=== PATIENT | male | born 1940 | race Caucasian/White ===

== ENCOUNTER 2021-12-18 09:38 | Emergency (ER) | payer MEDICARE, BC, SELFPAY ==
--- NOTE | ~2021-12-18 | XR_ITS ---
EXAMINATION: XR hand RT min 3V INDICATION: Right hand pain TECHNIQUE: Three views of the right hand are obtained. COMPARISON: None available FINDINGS: No fracture is identified. There is advanced osteoarthritis at the triscaphe joint, multipl e interphalangeal joints and the third metacarpophalangeal joint. There is moderate osteoarthritis at the first carpometacarpal joint as well as in the second, fourth, and fifth metacarpophalangeal join ts. The soft tissues are unremarkable. IMPRESSION: 1. 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 Reviewed, dictated and finalized at location A.
--- NOTE | 2021-12-18 09:44 | ED.UPPEXIN ---
HPI - Extremity Injury (Upper) General Chief Complaint: Extremity Injury, Upper Stated Complaint: Right hand injury Time Seen by Provider: 12/18/21 10:23 Source: patient and RN notes reviewed Mode of arrival: ambulatory Limitations: no limitations History of Present Illness HPI narrative: 81-year-old male presents with concern for right hand injury. He also reports abrasions on his forehead and nose. Reports yesterday he fell in his front yard, hitting his face and injuring his hand. He reports he is cleaned his wounds and applied antibiotic ointment. He reports a small amount of white drainage from the wounds. He reports right hand pain, most painful at the PIP joint of the third digit. MD complaint: injury to: right and hand Related Data Home Medications Medication Instructions Recorded Confirmed atorvastatin 40 mg tablet 40 tablet PO DAILY 12/18/21 12/18/21 dutasteride 0.5 mg capsule 0.5 cap PO DAILY 12/18/21 12/18/21 tamsulosin 0.4 mg capsule 0.4 cap PO DAILY 12/18/21 12/18/21 Allergies Allergy/AdvReac Type Severity Reaction Status Date / Time No Known Allergies Allergy Verified 12/18/21 10:40 Review of Systems Review of Systems: CONSTITUTIONAL: Denies malaise, chills, sweats, or fever. SKIN: Reports abrasion to the right forehead and nose. MUSCULOSKELETAL: Reports right hand pain, swelling NEUROLOGIC: Denies numbness, weakness All systems reviewed & are unremarkable except as noted in HPI and below PMFSH Comments At time of signature, agree with nursing past medical, surgical, social and family history. There is no relevant family history pertinent to the presenting complaint Exam Narrative: GENERAL: Well-appearing, well-nourished, and in no acute distress. HEAD: Normocephalic, atraumatic. EYES: PERRLA, conjunctivae clear NECK: Supple. CHEST: Speaks in full sentences. No respiratory distress. HEART: Regular rate and rhythm. Normal and equal peripheral pulses. EXTREMITIES: Right hand and digits of hand have normal sensation. 5/5 strength with digit 1, 2, 4, 5 flexion, extension; digit 3 3/5 strength. Range of motion limited. No clubbing, cyanosis. Mild dorsal edema and tenderness noted, particularly above digit 3. Skin intact. Normal digital cascade with flexion of fingers, median, ulnar and radial nerve intact. Normal sensation of each side of finger. Can perform 'okay' sign. No scissoring. Normal thumb opposition. Good capillary refill and radial pulse. Distal capillary refill less than 3 seconds. SKIN: Warm, dry. Approximately 4 cm x 3 cm abrasion noted to the right forehead, 1 cm x 2 cm abrasion noted to the bridge of the nose, small amount of yellow drainage noted NEURO: Alert and oriented x3. PSYCH: Normal mood and affect Course Course Emergency Course: Patient is aware of diagnosis, understands and agrees to treatment plan. Anticipatory guidance given. Patient agrees to follow-up as directed and is aware of reasons to seek care at the emergency department. Portions of this record may have been created with voice recognition software Level of Care: Express Care Visit Vital Signs Vital signs: Reviewed. MDM - Extremity Injury (Upper) MDM Narrative Medical decision making narrative: Patients injury and pain is consistent with musculoskeletal etiology. No signs of neurological or vascular compromise on exam. Compartments and tissues are soft without signs of compartment syndrome. Pain is felt appropriate for further evaluation on an outpatient basis. Imaging Data My impression: Images reviewed, interpreted by radiologist, agree, see report. Radiologist's impression: EXAMINATION: XR hand RT min 3V INDICATION: Right hand pain TECHNIQUE: Three views of the right hand are obtained. COMPARISON: None available FINDINGS: No fracture is identified. 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 There is mode
[2021-12-18 09:46] VITALS: BP 156/74; PULSE 64; RESP 20; TEMP 36.6; O2SAT 100
== END 2021-12-18 11:05 | disposition home or self-care (01) ==
PROVIDERS: Emergency Provider Nurse Practitioner; PCP Family Medicine Sports Medicine
DX: S63.91XA Sprain of unspecified part of right wrist and hand, initial encounter (principal); W19.XXXA Unspecified fall, initial encounter; S00.81XA Abrasion of other part of head, initial encounter; S00.31XA Abrasion of nose, initial encounter; E11.9 Type 2 diabetes mellitus without complications
CPT/HCPCS: 73130; 99213; G0463

== ENCOUNTER 2022-11-22 16:11 | Inpatient (IN) | payer MEDICARE, BC, SELFPAY ==
[2022-11-22] VITALS (12 sets, daily range): BP systolic 129–153; BP diastolic 66–89; PULSE 63–76; RESP 10–18; TEMP 37.4; O2SAT 95–100; BMI 28.8
--- NOTE | ~2022-11-22 | XR_ITS ---
EXAM: XR hip RT 2V w AP pelvis DATE: 11/22/2022 17:45 HISTORY: fall . COMPARISON: None available. FINDINGS: Slightly decreased mineralization. Degenerative changes in the spine and right SI joint. C omminuted fracture of the proximal right femur involving the intertrochanteric region and lesser troc hanter, which is distracted. Moderate medial angulation. IMPRESSION: Medially angulated intertrochanteric right femoral fracture. Reviewed, dictated and finalized at location K.
--- NOTE | ~2022-11-22 | XR_ITS ---
EXAMINATION: XR surgery orthopedic DATE: 11/24/2022 13:25 INDICATION: Intertrochanteric fracture of proximal right femur. TECHNIQUE: 6 intraoperative fluoroscopic views of right femur were obtained. I was not present. Fluor oscopy exposure time was 73 seconds. COMPARISON: Right hip radiographs 11/22/2022 FINDINGS: There is a comminuted intertrochanteric fracture of proximal right femur. The main distal f racture fragment demonstrates 2 cortical widths medial displacement and 9 degrees medial angulation. Internal fixation is seen with an antegrade intramedullary nail and femoral head/neck screw and dista l interlocking screw. There is mild right hip osteoarthrosis. IMPRESSION: 1. Comminuted intertrochanteric fracture of proximal right femur with improved alignment status post open reduction internal fixation. Reviewed, dictated and finalized at location E.
--- NOTE | ~2022-11-22 | XR_ITS ---
EXAMINATION: XR chest 1V portable Exam Date/Time: 11/22/2022 17:35 CDT HISTORY: fall Comparison: None. RESULT: Lines, tubes, and devices: None. Lungs and pleura: Senescent changes. No focal consolidation or pneumothorax. Cardiomediastinal silhouette: Aortic ectasia. Other: No acute osseous or upper abdominal finding. IMPRESSION: No acute cardiopulmonary process. Reviewed, dictated and finalized at location K.
--- NOTE | ~2022-11-22 | US_ITS ---
EXAMINATION: US venous doppler LE RT DATE: 11/28/2022 13:06 INDICATION: Right calf swelling and pain. TECHNIQUE: Grayscale ultrasound images without and with compression and Doppler ultrasound images of the right lower extremity veins were obtained. COMPARISON: None. FINDINGS: The visualized portions of right common femoral vein, profunda (deep) femoral vein, femoral vein, pop liteal vein, peroneal veins, posterior tibial veins, and greater saphenous vein outflow are patent. IMPRESSION: 1. No deep venous thrombosis. Reviewed, dictated and finalized at location A.
--- NOTE | 2022-11-22 16:53 | ECG_ITS ---
Measurements Intervals [place] Rate: 64 P: 34 HI: 185 QRS: 60 QRSD: 158 T: -15 QT: 445 QTc: 461 Interpretive Statements SINUS RHYTHM RIGHT BUNDLE BRANCH BLOCK BASELINE ARTIFACT- II, III, AVF, V4-V6 ABNORMAL ECG NO PREVIOUS ECG AVAILABLE FOR COMPARISON Electronically Signed On 11-22-2022 17:35:27 CDT by Jann Scott D.O.
[2022-11-22] MEDS: ONDANSETRON INJ 4 MG/2 ML VIAL IV PUSH (17:12)
[2022-11-22] MEDS: MORPHINE SULFATE (*CRX) 4 MG/ML INJ IV PUSH (17:12)
[2022-11-22 17:14] LABS: Basophils Absolute Auto 0.1 K/mm3 (0.0-0.1); Basophils Percent Auto 0.4 % (0.2-1.2); Eosinophils Absolute Auto 0.1 K/mm3 (0-0.3); Eosinophils Percent Auto 0.8 % (0-4.4); Hematocrit 43.9 % (42.0-52.0); Hemoglobin 14.7 g/dL (14.0-18.0); Immature Granulocyte Absolute 0.04 K/mm3 (0.00-0.031); Immature Granulocyte Percent A 0.3 % (0-0.5); Lymphocytes Absolute Auto 1.77 K/mm3 (0.9-3.2); Lymphocytes Percent Auto 14.4 % (18.3-44.2); Mean Corpuscular HGB Conc 33.5 g/dl (32-36); Mean Corpuscular Hemoglobin 31.5 pg (26-34); Mean Platelet Volume 9.6 fl (7.4-10.4); Monocytes Percent Auto 8.2 % (2.6-8.5); Neutrophils Absolute Auto 9.4 K/mm3 (1.3-6.7); Neutrophils Percent Auto 75.9 % (45.5-73.1); Platelet Count Result 245 k/mm3 (150-375); Red Blood Count 4.67 M/mm3 (4.6-6.20); Red Cell Distribution Width 12.6 % (11.5-14.5); White Blood Count 12.3 K/mm3 (4.5-10.0)
[2022-11-22 17:26] LABS: Prothrombin Time 13.9 Seconds (11.1-14.7)
[2022-11-22 17:32] LABS: Alanine Aminotransferase 22 U/L (6-50); Albumin Level 4.3 g/dL (3.5-5.1); Alkaline Phosphatase 70 U/L (38-126); Anion Gap 12 mmol/L (8-16); Aspartate Amino Transferase 23 U/L (17-59); Bilirubin,Total 0.9 mg/dL (0.2-1.3); Blood Urea Nitrogen 20 mg/dL (9-20); Calcium 8.9 mg/dL (8.4-10.2); Carbon Dioxide 22 mmol/L (22-30); Chloride 104 mmol/L (98-107); Estimated CRCL calculation 48 ml/min; Estimated Glomerular Filt Rate 58; Glucose 186 mg/dL (65-110); Potassium 3.8 mmol/L (3.4-5.0); Sodium 138 mmol/L (137-145)
--- NOTE | 2022-11-22 18:35 | ED.FALL ---
HPI - Fall General Chief Complaint: Fall Stated Complaint: 1620 Source: patient Mode of arrival: EMS Limitations: no limitations History of Present Illness HPI Narrative: 82-year-old with history of hyperlipidemia, BPH here with complaints of right hip pain. Patient states that he was trying to pull the nail out of his deck lost balance and fell on his right hip. He denies head and neck injuries. No history of loss of consciousness. MD complaint: fall Fall from: standing Fall witnessed: yes, by family Place fall occurred: home Loss of consciousness: none Symptoms prior to fall: none Context: other (Lost balance) Location of injury: other (Right hip) Quality: aching Related Data Home Medications Medication Instructions Recorded Confirmed atorvastatin 40 mg tablet 40 tablet PO DAILY 12/18/21 12/18/21 dutasteride 0.5 mg capsule 0.5 cap PO DAILY 12/18/21 12/18/21 tamsulosin 0.4 mg capsule 0.4 cap PO DAILY 12/18/21 12/18/21 Allergies Allergy/AdvReac Type Severity Reaction Status Date / Time No Known Allergies Allergy Verified 12/18/21 10:40 Review of Systems Review of Systems: All systems reviewed & are unremarkable except as noted in HPI and below Constitutional: Constitutional: Reports no additional constitutional complaints Eyes: Eyes: Reports no additional eye complaints ENT: Reports system reviewed and no additional complaints, except as documented Cardiovascular: Cardiovascular: Reports no additional cardiovascular complaints Respiratory: Respiratory: Reports no additional respiratory complaints Gastrointestinal: Gastrointestinal: Reports no additional gastrointestinal complaints Musculoskeletal: Musculoskeletal: Reports as per HPI Integumentary/Breasts: Skin/Breast: Reports system reviewed and no additional complaints, except as docu Neurologic: Reports system reviewed and no additional complaints, except as documented Exam Narrative: GENERAL: Well-appearing, well-nourished, and in no acute distress. HEAD: Normocephalic, atraumatic. EYES: PERRLA and EOMI. NECK: Supple. CHEST: Clear to auscultation. No respiratory distress. HEART: Regular rate and rhythm. No murmur heard. Normal peripheral pulses. ABDOMEN: Soft, nontender, nondistended, normal active bowel sounds. EXTREMITIES: Normal range of motion. No edema. Mild tenderness in the right hip area on gentle palpation. SKIN: Warm, dry, no rash. NEURO: No focal deficits. Alert and oriented x3. PSYCH: Normal mood and affect. Course Course Emergency Course: Patient seems to be comfortable on the bed with IV morphine on board informed him and his son about his lab work, x-ray findings agreeable for admission. I discussed with Dr. Quick and the hospitalist. Vital Signs Vital signs: Vital Signs Temperature 37.4 C 11/22/22 16:18 Pulse Rate 66 11/22/22 16:18 Respiratory Rate 17 11/22/22 16:18 Blood Pressure 153/89 H 11/22/22 16:18 Pulse Oximetry 100 11/22/22 16:18 Oxygen Delivery Room Air 11/22/22 16:18 Temperature 37.4 C 11/22/22 16:18 Pulse Rate 66 11/22/22 18:30 Respiratory Rate 12 11/22/22 18:30 Blood Pressure 133/75 11/22/22 18:30 Pulse Oximetry 100 11/22/22 18:30 Oxygen Delivery Room Air 11/22/22 16:18 MDM - Fall MDM Narrative Medical decision making narrative: 82-year-old with a history of fall now having significant right hip pain tender on gentle movement appears to be fractured we will do x-rays control his pain with morphine. Differential Diagnosis Differential diagnosis: Likely other (Hip contusion hip fracture) Lab Data 11/22/22 16:30 11/22/22 16:30 Labs: Lab Results 11/22/22 Range/Units 16:30 WBC 12.3 H (4.5-10.0) K/mm3 RBC 4.67 (4.6-6.20) M/mm3 Hgb 14.7 (14.0-18.0) g/dL Hct 43.9 (42.0-52.0) % MCV 94.0 (80-100) fl MCH 31.5 (26-34) pg MCHC 33.5 (32-36) g/dl RDW 12.6 (11.5-14.5) % Plt Count 245 (150-37
[2022-11-22] MEDS: HYDROmorphone HCL INJ (*CRX) 1 MG/ML SYR 0.5 MG IV PUSH (18:41)
--- NOTE | 2022-11-22 20:38 | PM.IMHP ---
H&P: HPI History of Present Illness Date/Time: 11/22/22 20:30 Chief Complaint: Right hip pain after fall. Narrative: This is a very pleasant 82-year-old male with hypertension, hyperlipidemia, type 2 diabetes mellitus, and benign prostatic hyperplasia presented to the emergency department via EMS from home for evaluation of right hip pain after fall. This afternoon he was outside making repairs on his dock. He had some issues removing a soraida nail from a board and when the nail finally released the force sent him backwards and caused him to fall hard onto his right side onto the wooden dock. He had immediate pain in that right hip and was unable to get himself up but he was able to crawl onto the grass and a neighbor saw him within about 20 minutes time and EMS was summoned. He denies head trauma and loss of consciousness in the fall and he has no complaints of pain aside from a pretty severe aching pain in the right hip. Radiographs in the ED showed immediately angulated inter trochanteric right femoral fracture and he is being admitted in this setting for pain control and surgical correction. Review of Systems Review of Systems: Twelve systems were reviewed. No fever, chills, or sweats. No recent cold or flu symptoms. He has no history of cardiac disease. Denies exertional chest pain and shortness of breath. No syncope or near syncope. He denies orthopnea, paroxysmal nocturnal dyspnea, and lower extremity edema. No nausea or vomiting. No history of venous thromboembolism. He believes his diabetes is well controlled. Except as documented, all other systems were reviewed and are negative. 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 Code status: Full code. Smoking status: Never smoker Alcohol intake: current Alcohol use details: 1-2 a day. Substance use: never Additional living arrangements comments: The patient lives in his own home in [place]. Additional occupation/education comments: Retired from [employer]. Meds Home Medications and Allergies Home Medications Medication Instructions Recorded Confirmed Type atorvastatin 40 mg tablet 40 tablet PO DAILY 12/18/21 12/18/21 History dutasteride 0.5 mg capsule 0.5 mg PO DAILY 12/18/21 12/18/21 History mupirocin 2 % topical ointment 1 applic topical BID 7 days #22 12/18/21 Rx grams tamsulosin 0.4 mg capsule 0.4 cap PO DAILY 12/18/21 12/18/21 History empagliflozin 25 mg tablet 25 mg 11/22/22 History (Jardiance) lisinopril 10 mg tablet 10 mg PO 11/22/22 History Allergies Allergy/AdvReac Type Severity Reaction Status Date / Time No Known Allergies Allergy Verified 12/18/21 10:40 Vital Signs Vital Signs - 24 hr 11/22/22 16:18 11/22/22 18:30 11/22/22 18:43 Temperature 99.3 F Pulse Rate 66 66 66 Respiratory Rate 17 12 18 Blood Pressure 153/89 H 133/75 Pulse Oximetry 100 100 99 Oxygen Delivery Room Air 11/22/22 18:51 11/22/22 19:09 11/22/22 19:15 Temperature Pulse Rate 65 64 64 Respiratory Rate 13 11 L 10 L Blood Pressure Pulse Oximetry 99 97 96 Oxygen Delivery 11/22/22 19:16 11/22/22 19:30 11/22/22 19:45 Temperature Pulse Rate 63 69 65 Respiratory Rate 11 L 11 L 13 Blood Pressure 141/66 H Pulse Oximetry 97 95 98 Oxygen Delivery 11/22/22 19:46 11/22/22 20:02 Temper
[2022-11-22] MEDS: TAMSULOSIN HCL 0.4 MG CAPSULE PO (21:04)
[2022-11-22] MEDS: lisinopriL 10 MG TABLET PO (21:04)
[2022-11-22 21:07] LABS: Glucose Point of Care 142 mg/dl (65-105)
[2022-11-22] MEDS: DUTASTERIDE 0.5 MG CAPSULE PO (22:00)
[2022-11-22] MEDS: ATORVASTATIN 40 MG TABLET PO (22:00)
[2022-11-22] MEDS: EMPAGLIFLOZIN 25 MG TABLET PO (22:00)
[2022-11-22] MEDS: SODIUM CHLORIDE 0.9% IV 1,000 ML 125 ML IV CONT (22:00)
[2022-11-23] MEDS: HYDROcodone/acetaminophen (*CRX) 5-325 MG TABLET 1 TAB PO ×3 (05:00→20:24)
[2022-11-23 06:19] LABS: Basophils Percent Auto 0.3 % (0.2-1.2); Eosinophils Percent Auto 0.3 % (0-4.4); Hematocrit 39.6 % (42.0-52.0); Immature Granulocyte Absolute 0.03 K/mm3 (0.00-0.031); Immature Granulocyte Percent A 0.3 % (0-0.5); Lymphocytes Absolute Auto 1.62 K/mm3 (0.9-3.2); Lymphocytes Percent Auto 17.3 % (18.3-44.2); Mean Corpuscular HGB Conc 32.8 g/dl (32-36); Mean Corpuscular Hemoglobin 31.6 pg (26-34); Mean Corpuscular Volume 96.4 fl (80-100); Mean Platelet Volume 9.3 fl (7.4-10.4); Monocytes Absolute Auto 1.3 K/mm3 (0.1-0.6); Monocytes Percent Auto 13.8 % (2.6-8.5); Neutrophils Absolute Auto 6.4 K/mm3 (1.3-6.7); Platelet Count Result 212 k/mm3 (150-375); Red Blood Count 4.11 M/mm3 (4.6-6.20); Red Cell Distribution Width 12.9 % (11.5-14.5); White Blood Count 9.4 K/mm3 (4.5-10.0)
--- NOTE | 2022-11-23 06:31 | ADMGEN ---
This patient, Tomy Jett, was admitted to Medical Room 347-01. Patient/family oriented to hospital policies and general routines including ID bracelet, bed and alarms, visiting hours, pain management, procedures, bathroom and other care routines, personal items, smoking policy, room service/diet, and visiting hours. Information on how to activate the Rapid Response Team has been discussed. Patient/Family are encouraged to report perceived risks to care and to ask questions if they do not understand what they are told or what they should do.
--- NOTE | 2022-11-23 06:47 | PM.CNOR ---
Assessment and Plan Assessment and plan (1) Closed intertrochanteric fracture of right femur: Qualifiers: Encounter type: initial encounter Fracture alignment: displaced Qualified Code(s): S72.141A - Displaced intertrochanteric fracture of right femur, initial encounter for closed fracture Code(s): S72.141A - Displaced intertrochanteric fracture of right femur, initial encounter for closed fracture Status: Acute Assessment and Plan: New patient evaluation for chief complaint right hip injury. History, physical exam and radiographs reviewed with the patient. RT hip intertrochanteric fx. Discussed the condition, nature, etiology and course of natural history with the patient. Treatment options including surgical and nonoperative treatment were reviewed. Risks and benefits of each as well as alternatives reviewed. The patient's questions were answered. Discussed nonoperative and operative treatment options with the patient. Risks and benefits of each as well as alternatives were reviewed. All of the patient's questions were answered. The risks of surgery reviewed including but not limited to: Neurovascular damage, wound complication, infection, blood clot, pulmonary embolus, stroke, myocardial infarction, and anesthetic risks up to and including . Continued pain and possible dysfunction were explained. Specific risks of the procedure including later recurrence of deformity. No guarantees were offered. If hardware used, discussed risk of failure/ breakage and possible need for removal. If complications occur, the patient understands the need for further treatment, possible further surgery. Patient verbalizes understanding and wishes to proceed. PLAN:Right hip trochanteric nail History of Present Illness HPI Consult date: 11/23/22 Requesting physician: Stanislaw Winter MD Chief complaint: Right Hip Fracture Narrative: 82yo man fell on to right side while working back of house outside. RT hip fracture on xray. C/O right hip pain. No LOC, head or back injury. Review of Systems Review of Systems: All systems reviewed & are unremarkable except as noted in HPI and below Constitutional: Constitutional: Reports no additional constitutional complaints Eyes: Eyes: Reports no additional eye complaints ENT: Reports system reviewed and no additional complaints, except as documented Cardiovascular: Cardiovascular: Reports no additional cardiovascular complaints Respiratory: Respiratory: Reports no additional respiratory complaints Gastrointestinal: Gastrointestinal: Reports no additional gastrointestinal complaints Musculoskeletal: Musculoskeletal: Reports as per HPI Integumentary/Breasts: Skin/Breast: Reports system reviewed and no additional complaints, except as docu Neurologic: Reports system reviewed and no additional complaints, except as documented [facility] Past Medical History Medical History Arthritis Benign prostatic hyperplasia Dyslipidemia Hydrocephalus Hypertension Type 2 diabetes mellitus Surgical History Surgical History History of left knee replacement History of ventriculoperitoneal shunting Family History Family History Other Diabetes mellitus Hypertension Social History Social History Social History: Surrogate medical decision maker: Lázaro Jett, son. Code status: Full code. Smoking status: Never smoker Alcohol intake: current Alcohol use details: 1-2 a day. Substance use: never Additional living arrangements comments: The patient lives in his own home in [place]. Additional occupation/education comments: Retired from [employer]. Meds Home Medications and Allergies Home Medications Medication Instructions Rodrigo
--- NOTE | 2022-11-23 06:55 | PC.NURSE ---
Paper documentation exists on this patient due to [employer] downtime on 11/22/22 2200 from to [11/23/22] 0600.
[2022-11-23 06:58] LABS: Anion Gap 6 mmol/L (8-16); Blood Urea Nitrogen 19 mg/dL (9-20); Carbon Dioxide 22 mmol/L (22-30); Chloride 108 mmol/L (98-107); Estimated CRCL calculation 70 ml/min; Estimated Glomerular Filt Rate > 60; Glucose 135 mg/dL (65-110); Potassium 4.2 mmol/L (3.4-5.0); Sodium 136 mmol/L (137-145)
[2022-11-23] MEDS: SODIUM CHLORIDE 0.9% IV 1,000 ML 125 ML IV CONT (07:05)
[2022-11-23 08:28] LABS: Glucose Point of Care 118 mg/dl (65-105)
[2022-11-23] MEDS: HYDROmorphone HCL INJ (*CRX) 1 MG/ML SYR 0.5 MG IV PUSH ×2 (08:51→15:07)
--- NOTE | 2022-11-23 10:33 | PM.IMPN ---
Progress Note: A&P Assessment and Plan (1) Closed intertrochanteric fracture of right femur: Qualifiers: Encounter type: initial encounter Fracture alignment: displaced Qualified Code(s): S72.141A - Displaced intertrochanteric fracture of right femur, initial encounter for closed fracture Code(s): S72.141A - Displaced intertrochanteric fracture of right femur, initial encounter for closed fracture Status: Acute Assessment and Plan: Patient sustained a mechanical fall resulting in a medially angulated intertrochanteric right femoral fracture. Analgesics available as needed. Plan for surgical correction per Dr. Quick tomorrow. (2) Hypertension: Code(s): I10 - Essential (primary) hypertension Status: Acute Assessment and Plan: Patient's blood pressure was reviewed on 11/23 Blood pressure remains well controlled. Will continue current medications. (3) Type 2 diabetes mellitus: Code(s): E11.9 - Type 2 diabetes mellitus without complications Status: Acute Assessment and Plan: A1c pending. The patient's blood glucose was reviewed on 11/23 Glucose remains well controlled. Continue AccuCheks covering with sliding scale. Hypoglycemia protocol available as needed. Continue current medications. (4) Benign prostatic hyperplasia: Code(s): N40.0 - Benign prostatic hyperplasia without lower urinary tract symptoms Status: Acute Assessment and Plan: Stable. Voiding well. Continue dutasteride and tamsulosin. (5) Dyslipidemia: Code(s): E78.5 - Hyperlipidemia, unspecified Status: Acute Assessment and Plan: LFTs within normal limits. Continue atorvastatin Subjective Date/time seen: 11/23/22 10:33 Interval history: 82yo male with HTN, DM, BPH and HLD here for hip pain after a fall. Assuming care. Chart reviewed. No chest pain or shortness of breath. He denies chest pain or increasing shortness of breath recently. He is very active with mowing his lawn and draining groceries without difficulty. Exam Narrative: AF 99.3 145/71 76 18 100% ra Gen - NARD Chest - CTA bilaterally, nml RR CV - RRR S1/S2 with 2/6 systolic murmur heard loudest in the left lower sternal border. Abd - Soft, NT/ND, Positive BS Ext - No pedal edema. 2+ PT pulses bilaterally. Neuro - Alert and oriented. Nonfocal exam. Psych - Nml mood and affect Skin - Warm and dry Objective Data Vital Signs Vital Signs: Vital Signs - 24 hr 11/22/22 16:18 11/22/22 18:30 11/22/22 18:43 Temperature 99.3 F Pulse Rate 66 66 66 Respiratory Rate 17 12 18 Blood Pressure 153/89 H 133/75 Pulse Oximetry 100 100 99 Oxygen Delivery Room Air 11/22/22 18:51 11/22/22 19:09 11/22/22 19:15 Temperature Pulse Rate 65 64 64 Respiratory Rate 13 11 L 10 L Blood Pressure Pulse Oximetry 99 97 96 Oxygen Delivery 11/22/22 19:16 11/22/22 19:30 11/22/22 19:45 Temperature Pulse Rate 63 69 65 Respiratory Rate 11 L 11 L 13 Blood Pressure 141/66 H Pulse Oximetry 97 95 98 Oxygen Delivery 11/22/22 19:46 11/22/22 20:02 11/22/22 21:05 Temperature Pulse Rate 67 69 76 Respiratory Rate 11 L 17 18 Blood Pressure 129/71 145/71 H Pulse Oximetry 98 98 100 Oxygen Delivery Intake/Output Intake/Output: Intake & Output 11/20/22 11/21/22 11/22/22 11/23/22 23:59 23:59 23:59 23:59 Intake Total 1000 Balance 1000 Meds/Results Medications: Active Medications Generic Name Dose Route Start Last Admin Trade Name Freq PRN Reason Stop Dose Admin Acetaminophen 650 mg 11/22/22 18:33 Acetaminophen 325 Mg Tablet PO Q4H PRN Mild Pain (1-3) or Fever Hydrocodone Bitart/Acetaminophen 1 tab 11/22/22 20:51 11/23/22 05:00 Hydrocodone/Acetaminophen (*Crx) 5-325 Mg Tablet PO 1 tab Q6H PRN Administration Pain Rated 4-6 Atorvastatin Calcium 40 mg 11/22/22 21:00 11/22/22 2
[2022-11-23 11:03] LABS: Hemoglobin A1C 8.5 % (<5.7)
[2022-11-23 12:22] LABS: Glucose Point of Care 155 mg/dl (65-105)
[2022-11-23 14:00] VITALS: BP 133/72; PULSE 63; RESP 18; TEMP 37.1; O2SAT 97
[2022-11-23 17:20] LABS: Glucose Point of Care 120 mg/dl (65-105)
[2022-11-23] MEDS: TAMSULOSIN HCL 0.4 MG CAPSULE PO (20:27)
[2022-11-23] MEDS: lisinopriL 10 MG TABLET PO (20:27)
[2022-11-23] MEDS: DUTASTERIDE 0.5 MG CAPSULE PO (20:27)
[2022-11-23] MEDS: ATORVASTATIN 40 MG TABLET PO (20:27)
[2022-11-23] MEDS: EMPAGLIFLOZIN 25 MG TABLET PO (20:28)
[2022-11-23 20:38] LABS: Glucose Point of Care 163 mg/dl (65-105)
[2022-11-23] MEDS: diphenhydrAMINE HCl CAP 25 MG CAPSULE PO (21:24)
[2022-11-23 21:44] VITALS: BP 146/78; PULSE 62; RESP 18; TEMP 37.1; O2SAT 96
[2022-11-24] VITALS (15 sets, daily range): BP systolic 108–147; BP diastolic 51–61; PULSE 16–85; RESP 12–70; TEMP 36.2–37.2; O2SAT 95–100
[2022-11-24] MEDS: HYDROmorphone HCL INJ (*CRX) 1 MG/ML SYR 0.5 MG IV PUSH ×2 (00:55→09:43)
[2022-11-24] MEDS: HYDROcodone/acetaminophen (*CRX) 5-325 MG TABLET 1 TAB PO ×2 (05:50→21:17)
[2022-11-24 06:19] LABS: Hematocrit 39.2 % (42.0-52.0); Hemoglobin 12.5 g/dL (14.0-18.0); Mean Corpuscular HGB Conc 31.9 g/dl (32-36); Mean Corpuscular Hemoglobin 30.9 pg (26-34); Mean Corpuscular Volume 96.8 fl (80-100); Mean Platelet Volume 9.3 fl (7.4-10.4); Platelet Count Result 184 k/mm3 (150-375); Red Blood Count 4.05 M/mm3 (4.6-6.20); Red Cell Distribution Width 12.6 % (11.5-14.5); White Blood Count 10.9 K/mm3 (4.5-10.0)
[2022-11-24 06:30] LABS: Anion Gap 9 mmol/L (8-16); Blood Urea Nitrogen 16 mg/dL (9-20); Calcium 8.3 mg/dL (8.4-10.2); Carbon Dioxide 23 mmol/L (22-30); Chloride 106 mmol/L (98-107); Estimated CRCL calculation 80 ml/min; Estimated Glomerular Filt Rate > 60; Glucose 99 mg/dL (65-110); Potassium 4.2 mmol/L (3.4-5.0); Sodium 138 mmol/L (137-145)
[2022-11-24 08:57] LABS: Glucose Point of Care 101 mg/dl (65-105)
--- NOTE | 2022-11-24 09:33 | WPDHPUPDATE1 ---
History and Physical Update Update Date/Time: 11/24/22 09:33 History and Physical has been reviewed, including an updated exam of the patient. There are NO changes in the patient's condition. Risks, benefits, and alternatives have been discussed and questions answered. Patient agrees to proceed with procedure.
[2022-11-24] MEDS: LACTATED RINGERS 1,000 ML 30 ML IV CONT ×2 (11:10→13:31)
[2022-11-24 11:11] LABS: Glucose Point of Care 97 mg/dl (65-105)
[2022-11-24] MEDS: KETOROLAC 15 MG/ML VIAL (*BKC) IV PUSH (11:15)
[2022-11-24] MEDS: ACETAMINOPHEN 500 MG TABLET 1000 MG PO (11:15)
[2022-11-24] MEDS: TRANEXAMIC ACID 1,000MG/ISO100 1,000 MG/100 ML BAG 200 MG IVPB (11:25)
--- NOTE | 2022-11-24 11:27 | WPDANESEPPF ---
Anes - Initial Pre Proc Eval Procedure: Operation Date: 11/24/22 12:00 Proposed Procedures p Right Hip Intertrochanteric Nail - Solo Quick MD Date/Time: 11/24/22 11:27 Surgeon: Maico Martinez MD Pre Op Diagnosis: Right Hip Fracture Patient Data Age: 82 Gender: M Height: 1.83 m Weight: 96.8 kg Last Vital Signs Temp 37.2 C 11/24/22 11:20 Pulse 77 11/24/22 11:20 Resp 16 11/24/22 11:20 BP 129/61 11/24/22 11:20 Pulse Ox 97 11/24/22 11:20 O2 Del Method Room Air 11/24/22 11:20 Allergies Allergy/AdvReac Type Severity Reaction Status Date / Time No Known Allergies Allergy Verified 11/24/22 11:03 Home Medications Medication Instructions Recorded Confirmed Type atorvastatin 40 mg tablet 40 tablet PO DAILY 12/18/21 11/22/22 History dutasteride 0.5 mg capsule 0.5 mg PO DAILY 12/18/21 11/22/22 History tamsulosin 0.4 mg capsule 0.4 cap PO DAILY 12/18/21 11/22/22 History empagliflozin 25 mg tablet 25 mg PO DAILY 11/22/22 11/22/22 History (Jardiance) lisinopril 10 mg tablet 10 mg PO DAILY 11/22/22 11/22/22 History Laboratory Tests 11/23/22 11/23/22 11/23/22 12:13 17:15 20:35 WBC RBC Hgb Hct MCV MCH MCHC RDW Plt Count MPV Sodium Potassium Chloride Carbon Dioxide Anion Gap BUN Creatinine Estim Creat Clear Calc Estimated GFR Glucose POC Capillary Glucose 155 H mg/dl 120 H mg/dl 163 H mg/dl (65-105) (65-105) (65-105) Calcium 11/24/22 11/24/22 11/24/22 05:59 08:54 11:08 WBC 10.9 H K/mm3 (4.5-10.0) RBC 4.05 L M/mm3 (4.6-6.20) Hgb 12.5 L g/dL (14.0-18.0) Hct 39.2 L % (42.0-52.0) MCV 96.8 fl (80-100) MCH 30.9 pg (26-34) MCHC 31.9 L g/dl (32-36) RDW 12.6 % (11.5-14.5) Plt Count 184 k/mm3 (150-375) MPV 9.3 fl (7.4-10.4) Sodium 138 mmol/L (137-145) Potassium 4.2 mmol/L (3.4-5.0) Chloride 106 mmol/L (98-107) Carbon Dioxide 23 mmol/L (22-30) Anion Gap 9 mmol/L (8-16) BUN 16 mg/dL (9-20) Creatinine 0.70 mg/dL (0.7-1.3) Estim Creat Clear Calc 80 ml/min Estimated GFR > 60 (59 - ) Glucose 99 mg/dL (65-110) POC Capillary Glucose 101 mg/dl 97 mg/dl (65-105) (65-105) Calcium 8.3 L mg/dL (8.4-10.2) Patient hx anesthesia problems: none Family hx anesthesia problems: none Results Review: All pre-operative results and documents have been reviewed as part of the pre-operative evaluation. 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 Code status: Full code. Smoking status: Never smoker Alcohol intake: current Alcohol use details: 1-2 a day. Substance use: never Additional living arrangements comments: The patient lives in his own home in [place]. Additional occupation/education comments: Retired from [employer]. Anes - Eval Final PreProcedure Day of Procedure 11/24/22 11:27 Patient weight: overweight Heart: regular
--- NOTE | 2022-11-24 11:33 | PM.IMPN ---
Progress Note: A&P Assessment and Plan (1) Closed intertrochanteric fracture of right femur: Qualifiers: Encounter type: initial encounter Fracture alignment: displaced Qualified Code(s): S72.141A - Displaced intertrochanteric fracture of right femur, initial encounter for closed fracture Code(s): S72.141A - Displaced intertrochanteric fracture of right femur, initial encounter for closed fracture Status: Acute Assessment and Plan: Patient sustained a mechanical fall resulting in a medially angulated intertrochanteric right femoral fracture. Right hip intramedullary hip screw POD #0 Analgesics available as needed. DVT prophylaxis per Ortho. PT/OT. (2) Hypertension: Code(s): I10 - Essential (primary) hypertension Status: Acute Assessment and Plan: Patient's blood pressure was reviewed on 11/24 Blood pressure remains well controlled. Will continue current medications. (3) Type 2 diabetes mellitus: Code(s): E11.9 - Type 2 diabetes mellitus without complications Status: Acute Assessment and Plan: A1c 8.5. The patient's blood glucose was reviewed on 11/24 Glucose remains well controlled. Continue AccuCheks covering with sliding scale. Hypoglycemia protocol available as needed. Continue current medications. (4) Benign prostatic hyperplasia: Code(s): N40.0 - Benign prostatic hyperplasia without lower urinary tract symptoms Status: Acute Assessment and Plan: Stable. Continue dutasteride and tamsulosin. (5) Dyslipidemia: Code(s): E78.5 - Hyperlipidemia, unspecified Status: Acute Assessment and Plan: LFTs within normal limits. Continue atorvastatin Subjective Date/time seen: 11/24/22 11:33 Interval history: 82yo male with HTN, DM, BPH and HLD here for hip pain after a fall. He is back from surgery. He feels well. No CP or SOB. No n/v. Pain controlled. Exam Narrative: AF 97.2 138/58 74 16 96% ra Gen - NARD Chest - CTA bilaterally, nml RR CV - RRR S1/S2 Abd - Soft, NT/ND, Positive BS Ext - No pedal edema. 2+ PT pulses bilaterally. right hip incision clean and dry Psych - Nml mood and affect Skin - Warm and dry Objective Data Vital Signs Vital Signs: Vital Signs - 24 hr 11/23/22 14:00 11/23/22 21:44 11/23/22 20:30 Temperature 98.8 F 98.8 F Pulse Rate 63 62 Respiratory Rate 18 18 Blood Pressure 133/72 146/78 H Pulse Oximetry 97 96 Oxygen Delivery Room Air 11/24/22 06:00 11/24/22 08:45 11/24/22 11:20 Temperature 97.1 F L 99.0 F Pulse Rate 64 77 Respiratory Rate 18 16 Blood Pressure 118/56 L 129/61 Pulse Oximetry 95 97 Oxygen Delivery Room Air Room Air Intake/Output Intake/Output: Intake & Output 11/21/22 11/22/22 11/23/22 11/24/22 23:59 23:59 23:59 23:59 Intake Total 2315 Output Total 650 1100 Balance 1665 -1100 Meds/Results Medications: Active Medications Generic Name Dose Route Start Last Admin Trade Name Freq PRN Reason Stop Dose Admin Acetaminophen 650 mg 11/22/22 18:33 Acetaminophen 325 Mg Tablet PO Q4H PRN Mild Pain (1-3) or Fever Hydrocodone Bitart/Acetaminophen 1 tab 11/22/22 20:51 11/24/22 05:50 Hydrocodone/Acetaminophen (*Crx) 5-325 Mg Tablet PO 1 tab Q6H PRN Administration Pain Rated 4-6 Atorvastatin Calcium 40 mg 11/22/22 21:00 11/23/22 20:27 Atorvastatin 40 Mg Tablet PO 40 mg QHS MONIQUE Administration Dextrose 12.5 gm 11/22/22 20:51 Dextrose 50% 25 Gm/50 Ml Syringe IV PUSH PRN PRN Hypoglycemia Protocol Diphenhydramine HCl 25 mg 11/23/22 17:59 11/23/22 21:24 Diphenhydramine Hcl Cap 25 Mg Capsule PO 25 mg Q6H PRN Administration Itching Dutasteride 0.5 mg 11/22/22 21:00 11/23/22 20:27 Dutasteride 0.5 Mg Capsule PO 0.5 mg QHS MONIQUE Administration Empagliflozin 25 mg 11/22/22 21:00 11/23/22 20:28 Empagliflozi
[2022-11-24] MEDS: ceFAZolin 2 GM/D5W 50 ML 2 GM/50 ML BAG IVPB (12:06)
[2022-11-24] MEDS: BUPIVACAINE/EPINEPHRINE 0.5% 50 ML VIAL INFILTRATE (12:49)
--- NOTE | 2022-11-24 13:31 | P.OP_ITS ---
Procedure Note - Detailed Date of Procedure 11/24/22 Pre-op Diagnosis Right Hip Intertrochanteric Fracture Post-op Diagnosis Same Procedure Performed right hip intramedullary hip screw Surgeon Solo Quick MD [employer] membership assistant Anesthesia General Indications 82-year-old gentleman who fell at home and sustained a right hip intertrochanteric fracture with subtrochanteric extension. Angulation and displacement noted. Patient desires operative treatment. Description of Procedure After informed consent the operative extremity was marked in the preoperative holding area. Patient received intravenous antibiotics. The patient was taken to the operative room, placed in the supine position, general anesthesia induced by the anesthesia team, and was placed on a fracture table with longitudinal traction applied to the right leg. The non operative leg was extended out of the field. The hip fracture was reduced to near anatomic position and verified with image intensification. A time-out was performed confirming the patient, site of the surgery and plan. The right lower extremity was prepped and draped sterilely from the knee to the iliac crest region using a ChloraPrep skin solution. Incision was made just proximal to greater trochanter down to the subcutaneous tissues. Hemostasis controlled with electrocautery. Blunt dissection through the fascia to the tip of the greater trochanter. A starter awl was placed at the tip of the greater trochanter into the medullary canal of the femur. This was checked with image intensification and was in good position. Intramedullary guide walter positioned. A one-step hand reaming done proximally. Intramedullary canal was reamed with a 12.5 millimeter flexible reamer. Measuring was then performed off of the guide walter. Neck angle selected off of preoperative radiographs temp plating. 125 degree 11 X 390mm Nail opened on the back table and assembled. This was then inserted over the guide walter to the correct depth. Guide walter removed. Lag screw was then placed with a stab incision over the lateral femur using a 10 blade knife. Blunt dissection down to the lateral side of the bone. Soft tissue protectors placed. Guide pin placed in the center center position of the femoral head and measured. 100 millimeter x 10 millimeter lag screw placed to correct depth and verified with image intensification. Traction then released from the leg and compression of the fracture performed with the external compression device. Distal locking of the nail then performed. Image intensification used to assist in positioning the drill. Drill measure and appropriate size screw placed to lock the nail. 44 mm screw placed through the nail. Final image intensification confirm reduction of the fracture and placement of the hardware. Wounds then thoroughly irrigated with antibiotic solution. Fascia repaired with 0 Vicryl interrupted suture. Subcutaneous tissue repaired with 2 0 Vicryl Interrupted suture and skin repaired with 3-0 Monocryl running subcuticular stitch with glue for the skin.. Sterile dressings applied. Patient then awoke from anesthesia, extubated taken to recovery room stable condition. All sponge, needle and instrument counts correct at the end the case. Implants Arthrex 11 mm 125 degree 390 mm nail with 100 mm lag screw and 44 mm locking screw. Estimated Blood Loss 200 Urine Output 300 Drains No Packing No Pathology None sent Complications None Condition Stable Disposition PACU [facility] Billing Surgery - Charge Forward: Surgery Billing ([id number])
[2022-11-24 13:53] LABS: Glucose Point of Care 139 mg/dl (65-105)
[2022-11-24] MEDS: ACETAMINOPHEN 325 MG TABLET 650 MG PO (15:57)
[2022-11-24] MEDS: KCL 20 MEQ/D5/0.45% SOD CHL 1,000 ML 80 ML IV CONT (15:57)
[2022-11-24 17:35] LABS: Glucose Point of Care 165 mg/dl (65-105)
--- NOTE | 2022-11-24 18:43 | PC.NURSE ---
RN called pharmacy twice about sending stool softeners that were due at 1700. RN has still not received meds.
[2022-11-24] MEDS: ceFAZolin 1 GM/NS 50 ML 1 GM/50 ML BAG IVPB (21:17)
[2022-11-24] MEDS: ATORVASTATIN 40 MG TABLET PO (21:18)
[2022-11-24] MEDS: DUTASTERIDE 0.5 MG CAPSULE PO (21:18)
[2022-11-24] MEDS: lisinopriL 10 MG TABLET PO (21:18)
[2022-11-24] MEDS: EMPAGLIFLOZIN 25 MG TABLET PO (21:18)
[2022-11-24] MEDS: TAMSULOSIN HCL 0.4 MG CAPSULE PO (21:18)
[2022-11-24 21:50] LABS: Glucose Point of Care 224 mg/dl (65-105)
[2022-11-25] VITALS (7 sets, daily range): BP systolic 90–126; BP diastolic 47–61; PULSE 68–82; RESP 16–18; TEMP 36.3–37.2; O2SAT 95–99
[2022-11-25] MEDS: HYDROcodone/acetaminophen (*CRX) 5-325 MG TABLET 1 TAB PO ×3 (03:44→16:30)
[2022-11-25] MEDS: ceFAZolin 1 GM/NS 50 ML 1 GM/50 ML BAG IVPB ×2 (03:44→12:57)
[2022-11-25 05:57] LABS: Basophils Percent Auto 0.2 % (0.2-1.2); Eosinophils Absolute Auto 0.1 K/mm3 (0-0.3); Eosinophils Percent Auto 0.5 % (0-4.4); Hematocrit 35.4 % (42.0-52.0); Hemoglobin 11.4 g/dL (14.0-18.0); Immature Granulocyte Absolute 0.05 K/mm3 (0.00-0.031); Immature Granulocyte Percent A 0.4 % (0-0.5); Lymphocytes Absolute Auto 1.13 K/mm3 (0.9-3.2); Mean Corpuscular HGB Conc 32.2 g/dl (32-36); Mean Corpuscular Volume 96.2 fl (80-100); Monocytes Absolute Auto 1.6 K/mm3 (0.1-0.6); Monocytes Percent Auto 14.1 % (2.6-8.5); Neutrophils Absolute Auto 8.4 K/mm3 (1.3-6.7); Neutrophils Percent Auto 74.8 % (45.5-73.1); Platelet Count Result 181 k/mm3 (150-375); Red Blood Count 3.68 M/mm3 (4.6-6.20); Red Cell Distribution Width 12.6 % (11.5-14.5); White Blood Count 11.3 K/mm3 (4.5-10.0)
[2022-11-25 06:08] LABS: Anion Gap 7 mmol/L (8-16); Blood Urea Nitrogen 22 mg/dL (9-20); Carbon Dioxide 23 mmol/L (22-30); Chloride 106 mmol/L (98-107); Estimated CRCL calculation 70 ml/min; Estimated Glomerular Filt Rate > 60; Glucose 126 mg/dL (65-110); Potassium 4.1 mmol/L (3.4-5.0); Sodium 136 mmol/L (137-145)
[2022-11-25 09:02] LABS: Glucose Point of Care 124 mg/dl (65-105)
[2022-11-25] MEDS: SENNA/DOCUSATE SODIUM TABLET 2 TAB PO ×2 (09:42→16:31)
[2022-11-25] MEDS: FONDAPARINUX SODIUM 2.5 MG/0.5 ML SYRINGE SUB-Q (09:43)
[2022-11-25] MEDS: polyethylene glycoL 3350 17 GM POWD.PACK PO (09:43)
--- NOTE | 2022-11-25 09:48 | PM.PNORT ---
Progress Note: A&P Assessment and Plan (1) Closed intertrochanteric fracture of right femur: Qualifiers: Encounter type: initial encounter Fracture alignment: displaced Qualified Code(s): S72.141A - Displaced intertrochanteric fracture of right femur, initial encounter for closed fracture Code(s): S72.141A - Displaced intertrochanteric fracture of right femur, initial encounter for closed fracture Status: Acute Assessment and Plan: POD #1: Right hip intramedullary hip screw Low BP today. Encourage PO intake. Medicine team following. Bowel regimen. Continue PT/OT. WBAT. Walker. HIGH FALL RISK. Continue pain control. Ice knee. Protect skin. DVT prophylaxis with Arixtra. SCDs. Incentive Spirometry Use reviewed. Monitor Dressing. Change prior to discharge. Bowel Regimen. Dispo: Home with Home Health pending progress with PT/OT Subjective Subjective Date/Time Seen: 11/25/22 09:48 Post Op day: 1 Interval history: POD #1: Right hip intramedullary hip screw Patient with complaints of right hip pain. No BM since Monday. Low BP. Awaiting mobility with PT/OT this AM. Review of Systems Review of Systems: All systems reviewed & are unremarkable except as noted in HPI and below Constitutional: Constitutional: Denies chills, Denies fever(s), Denies headache(s), Denies lethargy and Reports weakness ENT: Denies headache(s) Cardiovascular: Cardiovascular: Denies chest pain, Denies diaphoresis, Denies lightheadedness, Denies palpitations, Denies dyspnea and Denies dyspnea on exertion Respiratory: Respiratory: Denies cough, Denies dyspnea and Denies dyspnea on exertion Gastrointestinal: Gastrointestinal: Denies constipation, Denies diarrhea, Denies nausea and Denies vomiting Genitourinary: Genitourinary: Denies dysuria, Reports urinary frequency and Denies urinary hesitancy Musculoskeletal: Musculoskeletal: Reports joint swelling (Right Hip ) and Reports limited range of motion (Right Hip due to recent surgery ) Neurologic: Denies headache(s) and Reports weakness Endocrine: Endocrine: Denies palpitations Exam Const: General: comfortable and no acute distress Resp: Effort & Inspection: normal respiratory effort Cardio: Rate: regular rate Rhythm: regular rhythm GI: Inspection: non-distended Skin: General skin exam: normal color Other: Incision right hip c/d/i. Surrounding tissue without redness/warmth. Mild swelling consistent with recent surgery. No drainage. Neuro: Cognition (Neuro): normal cognition Speech: normal speech Extrem: Right lower extremity: normal to inspection, normal capillary refill, hip/thigh Details: tenderness Location: of the hip (Thigh soft ) Location: laterally and anteriorly, swelling Location: at the hip, abnormal ROM (limited consistent with recent surgery ) Details: pain with active ROM during and pain with passive ROM during and other (Incision c/d/i. ); no deformity and no unusual warmth, knee Details: normal to inspection; no tenderness and no swelling, lower leg (Negative Herve's Sign ) Details: normal to inspection and no edema; no tenderness, ankle (+ankle dorsiflexion/plantarflexion) Details: normal to inspection and no edema; no tenderness, no swelling and no ecchymosis and foot Details: normal capillary refill, toes with normal ROM, vascular exam Details: dorsalis pedis pulse present and motor-sensory exam Details: light-touch normal; no tenderness Objective Data Vital Signs Vital Signs: Vital Signs - 24 hr 11/24/22 11:20 11/24/22 13:31 11/24/22 13:45 Temperature 37.2 C 36.6 C Pulse Rate 77 82 77 Respiratory Rate 16 16 14 Blood Pressure 129/61 121/51 L 120/58 L Pulse Oximetry 97 100 100 Oxygen Delivery Room Air Simple Face Mask Simple Face Mask Oxygen Flow Rate 8 8 11/24/22 14:00 11/24/22 14:15 11/24/22 14:30 Temperature Pulse Rate 78 76 85 Respiratory Rate 12 14 16 Blood Pressure 121/59 L 113/60 126/59 L Pulse Oximet
--- NOTE | 2022-11-25 10:59 | P.PNAN_ITS ---
Anes - Prog Note Post-Op Date/Time: 11/25/22 10:59 Cardiovascular status: normal Respiratory status: normal Airway patency: baseline Mental status: baseline Post-Op hydration status: normal Vital Signs: Last Vital Signs Temp 36.8 C 11/25/22 08:31 Pulse 80 11/25/22 08:31 Resp 18 11/25/22 08:31 BP 90/47 L 11/25/22 08:31 Pulse Ox 97 11/25/22 08:31 O2 Del Method Room Air 11/25/22 08:52 O2 Flow Rate 8 11/24/22 14:00 Pain Score (VAS): 0 I/O: Intake & Output 11/24/22 11/25/22 11/25/22 23:59 07:59 15:59 Intake Total 1140 550 Output Total 350 1550 Balance 790 -1000 Laboratory Tests 11/25/22 05:41 11/25/22 05:41 11/24/22 11/24/22 11/24/22 11:08 13:51 17:28 WBC RBC Hgb Hct MCV MCH MCHC RDW Plt Count MPV Immature Gran % (Auto) Neut % (Auto) Lymph % (Auto) [place] % (Auto) Eos % (Auto) Baso % (Auto) Lymph # (Auto) [place] # (Auto) Eos # (Auto) Baso # (Auto) Abs Immat Gran (auto) Absolute Neuts (auto) Absolute Nucleated RBC Nucleated RBC % Sodium Potassium Chloride Carbon Dioxide Anion Gap BUN Creatinine Estim Creat Clear Calc Estimated GFR Glucose POC Capillary Glucose 97 139 H 165 H Calcium 11/24/22 11/25/22 11/25/22 21:31 05:41 08:58 WBC 11.3 H RBC 3.68 L Hgb 11.4 L Hct 35.4 L MCV 96.2 MCH 31.0 MCHC 32.2 RDW 12.6 Plt Count 181 MPV 9.0 Immature Gran % (Auto) 0.4 Neut % (Auto) 74.8 H Lymph % (Auto) 10.0 L [place] % (Auto) 14.1 H Eos % (Auto) 0.5 Baso % (Auto) 0.2 Lymph # (Auto) 1.13 [place] # (Auto) 1.6 H Eos # (Auto) 0.1 Baso # (Auto) 0.0 Abs Immat Gran (auto) 0.05 H Absolute Neuts (auto) 8.4 H Absolute Nucleated RBC 0.0 Nucleated RBC % 0.0 Sodium 136 L Potassium 4.1 Chloride 106 Carbon Dioxide 23 Anion Gap 7 L BUN 22 H Creatinine 0.80 Estim Creat Clear Calc 70 Estimated GFR > 60 Glucose 126 H POC Capillary Glucose 224 H 124 H Calcium 8.0 L Post-procedural complaints: none Patient Feedback: Patient satisfied with anesthetic care.
[2022-11-25 12:44] LABS: Glucose Point of Care 239 mg/dl (65-105)
[2022-11-25] MEDS: INSULIN ASPART (*BKC) 100 UNITS/ML SUB-Q (12:57)
--- NOTE | 2022-11-25 14:14 | PM.IMPN ---
Progress Note: A&P Assessment and Plan (1) Closed intertrochanteric fracture of right femur: Qualifiers: Encounter type: initial encounter Fracture alignment: displaced Qualified Code(s): S72.141A - Displaced intertrochanteric fracture of right femur, initial encounter for closed fracture Code(s): S72.141A - Displaced intertrochanteric fracture of right femur, initial encounter for closed fracture Status: Acute Plan # closed intertrochanteric fracture right hip -postop day 1 right hip IM nail -PT OT consulted -monitor blood pressure, hold lisinopril # chronic conditions -hyperlipidemia: Atorvastatin -essential hypertension: Holding lisinopril -BPH: Flomax, dutasteride -non-insulin type 2 diabetes: Continue Jardiance, sliding scale insulin, Accu-Cheks a.c. HS Diet: Diabetic DVT prophylaxis: Fondaparinux Code status: Full code Disposition: Pending PT evaluation, likely Subjective Date/time seen: 11/25/22 14:14 Interval history: Patient seen examined previous doing well no new complaints. Patient has some hypotension, will hold lisinopril. Patient seen postop day 1 right hip nailing. Hemoglobin 11.4. Continue monitor patient with hypertension, anticipate discharge soon likely home. Patient physical blood pressure more stable. He denies fever chills, nausea vomiting, diarrhea. Yesterday he fell lightheaded however that has resolved. Review of Systems Review of Systems: 10 point ROS complete, negative other than what is specified in HPI. Exam Narrative: - GENERAL: Pleasant elderly male no acute distress. Well-nourished. - EYES: EOMI. Anicteric. - HENT: Moist mucous membranes. - LUNGS: Clear to auscultation bilaterally, no wheezing, rhonchi, or rales. - CARDIOVASCULAR: Regular rate and rhythm. No murmur. No JVD. - ABDOMEN: Soft, non-tender and non-distended. No palpable masses. - EXTREMITIES: Appropriate right hip postop changes - NEUROLOGIC: No focal neurological deficits. CN II-XII grossly intact. - PSYCHIATRIC: Awake, Alert and oriented x 3. Appropriate mood and affect. - SKIN: No rashes or lesions. Warm. - LYMPH: No cervical lymphadenopathy. Objective Data Vital Signs Vital Signs: Vital Signs - 24 hr 11/24/22 14:15 11/24/22 14:30 11/24/22 14:45 Temperature Pulse Rate 76 85 78 Respiratory Rate 14 16 12 Blood Pressure 113/60 126/59 L 123/55 L Pulse Oximetry 97 97 97 Oxygen Delivery Room Air Room Air Room Air 11/24/22 15:00 11/24/22 15:15 11/24/22 15:45 Temperature 36.2 C L 36.2 C L 36.2 C L Pulse Rate 71 75 74 Respiratory Rate 16 18 16 Blood Pressure 147/57 H 123/60 138/58 L Pulse Oximetry 99 99 96 Oxygen Delivery 11/24/22 16:45 11/24/22 20:31 11/24/22 20:00 Temperature 36.8 C 37.1 C Pulse Rate 16 L 66 66 Respiratory Rate 70 H 18 18 Blood Pressure 129/54 L 141/61 H Pulse Oximetry 99 98 98 Oxygen Delivery Room Air 11/24/22 23:56 11/25/22 05:29 11/25/22 08:52 Temperature 36.4 C 36.3 C L Pulse Rate 66 68 Respiratory Rate 16 18 Blood Pressure 108/56 L 126/55 L Pulse Oximetry 96 98 Oxygen Delivery Room Air 11/25/22 08:31 11/25/22 12:00 11/25/22 12:31 Temperature 36.8 C 36.8 C Pulse Rate 80 82 Respiratory Rate 18 18 Blood Pressure 90/47 L 91/48 L Pulse Oximetry 97 96 Oxygen Delivery Room Air Intake/Output Intake/Output: Intake & Output 11/22/22 11/23/22 11/24/22 11/25/22 23:59 23:59 23:59 23:59 Intake Total 2315 1290 550 Output Total 650 1750 1550 Balance 7118 -827 -1000 Meds/Results Medications: Active Medications Generic Name Dose Route Start Last Admin Trade Name Freq PRN Reason Stop Dose Admin Acetaminophen 650 mg 11/22/22 18:33 11/24/22 15:57 Acetaminophen 325 Mg Tablet PO 650 mg Q4H PRN Administration Mild Pain (1-3) or Fever Hydrocodone Bitart/Acetaminophen 1 tab 11/22/22 20:51 11/25/22 09:48 Hydrocodone/Acetaminophen (*Crx) 5-325 Mg Tablet PO 1 ta
[2022-11-25 16:24] LABS: Glucose Point of Care 179 mg/dl (65-105)
[2022-11-25] MEDS: DUTASTERIDE 0.5 MG CAPSULE PO (20:52)
[2022-11-25] MEDS: ATORVASTATIN 40 MG TABLET PO (20:52)
[2022-11-25] MEDS: EMPAGLIFLOZIN 25 MG TABLET PO (20:52)
[2022-11-25] MEDS: TAMSULOSIN HCL 0.4 MG CAPSULE PO (20:52)
[2022-11-25 23:15] LABS: Glucose Point of Care 173 mg/dl (65-105)
[2022-11-26] MEDS: HYDROcodone/acetaminophen (*CRX) 5-325 MG TABLET 1 TAB PO ×4 (02:05→21:19)
[2022-11-26 05:54] VITALS: BP 106/45; PULSE 71; RESP 18; TEMP 36.3; O2SAT 97
[2022-11-26 06:17] LABS: Basophils Percent Auto 0.2 % (0.2-1.2); Eosinophils Absolute Auto 0.1 K/mm3 (0-0.3); Eosinophils Percent Auto 0.6 % (0-4.4); Hematocrit 32.9 % (42.0-52.0); Hemoglobin 10.6 g/dL (14.0-18.0); Immature Granulocyte Absolute 0.05 K/mm3 (0.00-0.031); Immature Granulocyte Percent A 0.5 % (0-0.5); Lymphocytes Absolute Auto 1.42 K/mm3 (0.9-3.2); Mean Corpuscular HGB Conc 32.2 g/dl (32-36); Mean Corpuscular Hemoglobin 31.2 pg (26-34); Mean Corpuscular Volume 96.8 fl (80-100); Mean Platelet Volume 9.3 fl (7.4-10.4); Monocytes Absolute Auto 1.5 K/mm3 (0.1-0.6); Monocytes Percent Auto 14.5 % (2.6-8.5); Neutrophils Absolute Auto 7.1 K/mm3 (1.3-6.7); Neutrophils Percent Auto 70.2 % (45.5-73.1); Platelet Count Result 223 k/mm3 (150-375); Red Cell Distribution Width 12.7 % (11.5-14.5); White Blood Count 10.1 K/mm3 (4.5-10.0)
[2022-11-26 08:20] VITALS: PULSE 71; RESP 18; O2SAT 97
[2022-11-26 08:20] LABS: Glucose Point of Care 130 mg/dl (65-105)
[2022-11-26] MEDS: SENNA/DOCUSATE SODIUM TABLET 2 TAB PO ×2 (08:20→16:38)
[2022-11-26] MEDS: polyethylene glycoL 3350 17 GM POWD.PACK PO (08:20)
[2022-11-26] MEDS: FONDAPARINUX SODIUM 2.5 MG/0.5 ML SYRINGE SUB-Q (08:20)
--- NOTE | 2022-11-26 08:49 | PM.IMPN ---
Progress Note: A&P Assessment and Plan (1) Closed intertrochanteric fracture of right femur: Qualifiers: Encounter type: initial encounter Fracture alignment: displaced Qualified Code(s): S72.141A - Displaced intertrochanteric fracture of right femur, initial encounter for closed fracture Code(s): S72.141A - Displaced intertrochanteric fracture of right femur, initial encounter for closed fracture Status: Acute Plan # closed intertrochanteric fracture right hip -postop day 2 right hip IM nail -PT OT consulted -monitor blood pressure, hold lisinopril -Hgb stable 10.6 # chronic conditions -hyperlipidemia: Atorvastatin -essential hypertension:? Holding lisinopril (patient to follow up with PCP prior to restarting) -BPH:? Flomax, dutasteride -non-insulin type 2 diabetes:? Continue Jardiance, sliding scale insulin, Accu-Cheks a.c. HS Diet:? Diabetic DVT prophylaxis:? Fondaparinux Code status:?Full code Disposition:?medically stable for discharge, home soon Subjective Date/time seen: 11/26/22 08:49 Interval history: Patient seen and examined. He is doing well with no new complaints. BP soft, will continue to hold lisinopril. Patient will follow up with PCP prior to resuming his lisinopril (apparently had previously been on and off lisinopril). Hgb stable 10.6. Patient is doing well, anticipate discharge home soon. He denies fever, chills, nausea, vomiting, diarrhea. Review of Systems Review of Systems: 10 point ROS complete, negative other than what is specified in HPI. Exam Narrative: - GENERAL:? Pleasant elderly male no acute distress. Well-nourished. - EYES: EOMI. Anicteric. - HENT: Moist mucous membranes. - LUNGS: Clear to auscultation bilaterally, no wheezing, rhonchi, or rales. - CARDIOVASCULAR: Regular rate and rhythm. No murmur. No JVD. - ABDOMEN: Soft, non-tender and non-distended. No palpable masses. - EXTREMITIES:? Appropriate right leg postop changes - NEUROLOGIC: No focal neurological deficits. CN II-XII grossly intact. - PSYCHIATRIC: Awake, Alert and oriented x 3. Appropriate mood and affect. - SKIN: No rashes or lesions. Warm. - LYMPH: No cervical lymphadenopathy. Objective Data Vital Signs Vital Signs: Vital Signs - 24 hr 11/25/22 08:52 11/25/22 12:00 11/25/22 12:31 Temperature 36.8 C Pulse Rate 82 Respiratory Rate 18 Blood Pressure 91/48 L Pulse Oximetry 96 Oxygen Delivery Room Air Room Air 11/25/22 09:40 11/25/22 14:00 11/25/22 21:24 Temperature 37.2 C 37.1 C Pulse Rate 82 71 73 Respiratory Rate 18 18 16 Blood Pressure 114/55 L 124/61 Pulse Oximetry 96 99 95 Oxygen Delivery Room Air 11/25/22 20:00 11/26/22 05:54 Temperature 36.3 C L Pulse Rate 71 71 Respiratory Rate 18 18 Blood Pressure 106/45 L Pulse Oximetry 99 97 Oxygen Delivery Room Air Intake/Output Intake/Output: Intake & Output 11/23/22 11/24/22 11/25/22 11/26/22 23:59 23:59 23:59 23:59 Intake Total 2315 1290 1340 445 Output Total 650 1750 2050 1200 Balance 7044 -500 -977 -901 Meds/Results Medications: Active Medications Generic Name Dose Route Start Last Admin Trade Name Freq PRN Reason Stop Dose Admin Acetaminophen 650 mg 11/22/22 18:33 11/24/22 15:57 Acetaminophen 325 Mg Tablet PO 650 mg Q4H PRN Administration Mild Pain (1-3) or Fever Hydrocodone Bitart/Acetaminophen 1 tab 11/22/22 20:51 11/26/22 02:05 Hydrocodone/Acetaminophen (*Crx) 5-325 Mg Tablet PO 1 tab Q6H PRN Administration Pain Rated 4-6 Atorvastatin Calcium 40 mg 11/22/22 21:00 11/25/22 20:52 Atorvastatin 40 Mg Tablet PO 40 mg QHS MONIQUE Administration Bisacodyl 10 mg 11/24/22 14:46 Bisacodyl 10 Mg Suppository RECTAL DAILY PRN Constipation Dextrose 12.5 gm 11/22/22 20:51 Dextrose 50% 25 Gm/50 Ml Syringe IV PUSH PRN PRN Hypoglycemia Protocol Diazepam 5 mg 11/24/22 14:46 Diazepam (*Crx) 5 Mg Tablet
--- NOTE | 2022-11-26 12:29 | PM.PNORT ---
Progress Note: A&P Assessment and Plan (1) Closed intertrochanteric fracture of right femur: Qualifiers: Encounter type: initial encounter Fracture alignment: displaced Qualified Code(s): S72.141A - Displaced intertrochanteric fracture of right femur, initial encounter for closed fracture Code(s): S72.141A - Displaced intertrochanteric fracture of right femur, initial encounter for closed fracture Status: Acute Assessment and Plan: POD #2: Right hip intramedullary hip screw Low BP today. Antihypertensive stopped. Bowel regimen. Continue PT/OT. WBAT. Walker. HIGH FALL RISK. Continue pain control. Ice knee. Protect skin. DVT prophylaxis with Arixtra. Plan to switch to aspirin at discharge. SCDs. Incentive Spirometry Use reviewed. Monitor Dressing. Change prior to discharge. Bowel Regimen. Dispo: Home with Home Health pending progress with PT/OT Subjective Subjective Date/Time Seen: 11/26/22 12:29 Post Op day: 2 Principal diagnosis: Right proximal femur fracture Interval history: patient awake up in chair. Complains of weakness right leg. Difficulty with ambulation. Pain otherwise fairly well controlled. Exam Const: General: comfortable and no acute distress Resp: Effort & Inspection: normal respiratory effort Neuro: Cognition (Neuro): normal cognition Speech: normal speech Extrem: Right lower extremity: normal to inspection, normal capillary refill, hip/thigh Details: tenderness Location: of the hip (Thigh soft ) Location: laterally and anteriorly, swelling Location: at the hip, abnormal ROM (limited consistent with recent surgery ) Details: pain with active ROM during and pain with passive ROM during and other (Incision c/d/i. ); no deformity and no unusual warmth, knee Details: normal to inspection; no tenderness and no swelling, lower leg (Negative Herve's Sign ) Details: normal to inspection and no edema; no tenderness, ankle (+ankle dorsiflexion/plantarflexion) Details: normal to inspection and no edema; no tenderness, no swelling and no ecchymosis and foot Details: normal capillary refill, toes with normal ROM, vascular exam Details: dorsalis pedis pulse present and motor-sensory exam Details: light-touch normal; no tenderness Objective Data Vital Signs Vital Signs: Vital Signs - 24 hr 11/25/22 12:31 11/25/22 14:00 11/25/22 21:24 Temperature 98.3 F 98.9 F 98.8 F Pulse Rate 82 71 73 Respiratory Rate 18 18 16 Blood Pressure 91/48 L 114/55 L 124/61 Pulse Oximetry 96 99 95 Oxygen Delivery 11/25/22 20:00 11/26/22 05:54 11/26/22 08:20 Temperature 97.4 F L Pulse Rate 71 71 71 Respiratory Rate 18 18 18 Blood Pressure 106/45 L Pulse Oximetry 99 97 97 Oxygen Delivery Room Air Room Air Intake/Output Intake/Output: Intake & Output 11/23/22 11/24/22 11/25/22 11/26/22 23:59 23:59 23:59 23:59 Intake Total 2315 1290 1340 805 Output Total 650 1750 2050 1200 Balance 5150 -752 -205 -618 Meds/Results Medications: Active Medications Generic Name Dose Route Start Last Admin Trade Name Freq PRN Reason Stop Dose Admin Acetaminophen 650 mg 11/22/22 18:33 11/24/22 15:57 Acetaminophen 325 Mg Tablet PO 650 mg Q4H PRN Administration Mild Pain (1-3) or Fever Hydrocodone Bitart/Acetaminophen 1 tab 11/22/22 20:51 11/26/22 08:52 Hydrocodone/Acetaminophen (*Crx) 5-325 Mg Tablet PO 1 tab Q6H PRN Administration Pain Rated 4-6 Atorvastatin Calcium 40 mg 11/22/22 21:00 11/25/22 20:52 Atorvastatin 40 Mg Tablet PO 40 mg QHS MONIQUE Administration Bisacodyl 10 mg 11/24/22 14:46 Bisacodyl 10 Mg Suppository RECTAL DAILY PRN Constipation Dextrose 12.5 gm 11/22/22 20:51 Dextrose 50% 25 Gm/50 Ml Syringe IV PUSH PRN PRN Hypoglycemia Protocol Diazepam 5 mg 11/24/22 14:46 Diazepam (*Crx) 5 Mg Tablet PO Q8H PRN Muscle Spasm Diphenhydramine HCl 25 mg 11/23/22 17:59 11/23/22 2
[2022-11-26 12:50] LABS: Glucose Point of Care 220 mg/dl (65-105)
[2022-11-26] MEDS: INSULIN ASPART (*BKC) 100 UNITS/ML SUB-Q (12:55)
[2022-11-26 14:00] VITALS: BP 148/62; PULSE 72; RESP 16; TEMP 37.1; O2SAT 96
--- NOTE | 2022-11-26 14:56 | PCPTNOTE ---
Patient refused treatment this session after two attempts. The patient stated that he just feels worn out and had just laid back down after sitting up for awhile. Will continue per PT plan of care.
[2022-11-26 17:25] LABS: Glucose Point of Care 144 mg/dl (65-105)
[2022-11-26 21:15] VITALS: BP 148/68; PULSE 72; RESP 18; TEMP 36.3; O2SAT 97
[2022-11-26] MEDS: ATORVASTATIN 40 MG TABLET PO (21:19)
[2022-11-26] MEDS: DUTASTERIDE 0.5 MG CAPSULE PO (21:19)
[2022-11-26] MEDS: EMPAGLIFLOZIN 25 MG TABLET PO (21:19)
[2022-11-26] MEDS: TAMSULOSIN HCL 0.4 MG CAPSULE PO (21:19)
[2022-11-26 21:58] LABS: Glucose Point of Care 273 mg/dl (65-105)
[2022-11-27 05:33] VITALS: BP 148/68; PULSE 71; RESP 16; TEMP 36.6; O2SAT 99
[2022-11-27 05:54] LABS: Hemoglobin 10.8 g/dL (14.0-18.0); Mean Corpuscular HGB Conc 31.8 g/dl (32-36); Mean Corpuscular Hemoglobin 30.8 pg (26-34); Mean Corpuscular Volume 96.9 fl (80-100); Mean Platelet Volume 8.8 fl (7.4-10.4); Platelet Count Result 243 k/mm3 (150-375); Red Blood Count 3.51 M/mm3 (4.6-6.20); Red Cell Distribution Width 12.5 % (11.5-14.5); White Blood Count 9.9 K/mm3 (4.5-10.0)
[2022-11-27 06:08] LABS: Anion Gap 8 mmol/L (8-16); Blood Urea Nitrogen 22 mg/dL (9-20); Calcium 8.4 mg/dL (8.4-10.2); Carbon Dioxide 25 mmol/L (22-30); Chloride 106 mmol/L (98-107); Estimated CRCL calculation 92 ml/min; Estimated Glomerular Filt Rate > 60; Glucose 127 mg/dL (65-110); Potassium 4.3 mmol/L (3.4-5.0); Sodium 139 mmol/L (137-145)
--- NOTE | 2022-11-27 08:01 | PM.PNORT ---
Progress Note: A&P Assessment and Plan (1) Closed intertrochanteric fracture of right femur: Qualifiers: Encounter type: subsequent encounter Fracture alignment: displaced Fracture healing: with routine healing Qualified Code(s): S72.141D - Displaced intertrochanteric fracture of right femur, subsequent encounter for closed fracture with routine healing Code(s): S72.141A - Displaced intertrochanteric fracture of right femur, initial encounter for closed fracture Status: Acute Assessment and Plan: POD #3: Right hip intramedullary hip screw BP improving. Antihypertensive stopped. Still without bowel movement. Bowel regimen. Continue PT/OT. WBAT. Walker. HIGH FALL RISK. Continue pain control. Ice knee. Protect skin. DVT prophylaxis with Arixtra. Plan to switch to aspirin at discharge. SCDs. Incentive Spirometry Use reviewed. Monitor Dressing. Change prior to discharge. Continue to monitor today. PT/ OT. Medication for bowel movement. Monitor blood pressure. Dispo: Home with Home Health Versus acute rehab possibly tomorrow. Subjective Subjective Date/Time Seen: 11/27/22 08:01 Principal diagnosis: Right proximal femur fracture Interval history: patient awake up in chair. Complains of weakness right leg. Difficulty with ambulation. Pain otherwise fairly well controlled. Exam Const: General: comfortable and no acute distress; No confusion Orientation/consciousness: patient oriented x3 and No confusion HENMT: Head: normal to inspection, normocephalic and atraumatic Neck: Neck: supple and nontender Skin: General skin exam: normal color and no rashes or lesions noted Other: Incision right hip c/d/i. Surrounding tissue without redness/warmth. Mild swelling consistent with recent surgery. No drainage. Neuro: General: patient oriented x3 and No confusion Cognition (Neuro): normal cognition Speech: normal speech Extrem: General: capillary refill normal Right upper extremity: normal to inspection Left upper extremity: normal to inspection Right lower extremity: normal to inspection, normal capillary refill, hip/thigh Details: tenderness Location: of the hip (Thigh soft ) Location: laterally and anteriorly, swelling Location: at the hip, abnormal ROM (limited consistent with recent surgery ) Details: pain with active ROM during and pain with passive ROM during and other (Incision c/d/i. ); no deformity and no unusual warmth, knee Details: normal to inspection; no tenderness and no swelling, lower leg (Negative Herve's Sign ) Details: normal to inspection and no edema; no tenderness, ankle (+ankle dorsiflexion/plantarflexion) Details: normal to inspection and no edema; no tenderness, no swelling and no ecchymosis and foot Details: normal capillary refill, toes with normal ROM, vascular exam Details: dorsalis pedis pulse present and motor-sensory exam Details: light-touch normal Location: in all toes; no tenderness Left lower extremity: normal to inspection, hip/thigh Details: no tenderness and no swelling, lower leg, ankle (no calf tenderness) Details: normal ROM; no tenderness and foot Details: normal capillary refill, vascular exam Details: dorsalis pedis pulse present and normal capillary refill and motor-sensory exam light-touch normal in all toes Objective Data Vital Signs Vital Signs: Vital Signs - 24 hr 11/26/22 08:20 11/26/22 14:00 11/26/22 21:15 Temperature 98.7 F 97.3 F L Pulse Rate 71 72 72 Respiratory Rate 18 16 18 Blood Pressure 148/62 H 148/68 H Pulse Oximetry 97 96 97 Oxygen Delivery Room Air 11/27/22 05:33 Temperature 97.8 F Pulse Rate 71 Respiratory Rate 16 Blood Pressure 148/68 H Pulse Oximetry 99 Oxygen Delivery Intake/Output Intake/Output: Intake & Output 11/24/22 11/25/22 11/26/22 11/27/22 23:59 23:59 23:59 23:59 Intake Total 1290 1340 2695 300 Output Total 1750 2050 1600 1000 Balance -460 -710 1095 -700 Meds/Results Me
[2022-11-27 08:38] LABS: Glucose Point of Care 135 mg/dl (65-105)
[2022-11-27] MEDS: FONDAPARINUX SODIUM 2.5 MG/0.5 ML SYRINGE SUB-Q (08:52)
[2022-11-27] MEDS: SENNA/DOCUSATE SODIUM TABLET 2 TAB PO ×2 (08:53→16:43)
[2022-11-27] MEDS: polyethylene glycoL 3350 17 GM POWD.PACK PO (08:53)
[2022-11-27 09:12] VITALS: PULSE 71; RESP 16; O2SAT 99
[2022-11-27] MEDS: HYDROcodone/acetaminophen (*CRX) 5-325 MG TABLET 1 TAB PO ×2 (09:55→16:42)
--- NOTE | 2022-11-27 11:16 | PM.IMPN ---
Progress Note: A&P Assessment and Plan (1) Closed intertrochanteric fracture of right femur: Qualifiers: Encounter type: subsequent encounter Fracture alignment: displaced Fracture healing: with routine healing Qualified Code(s): S72.141D - Displaced intertrochanteric fracture of right femur, subsequent encounter for closed fracture with routine healing Code(s): S72.141A - Displaced intertrochanteric fracture of right femur, initial encounter for closed fracture Status: Acute Plan # closed intertrochanteric fracture right hip -postop day 3 right hip IM nail - worsening right knee swelling, recommendation for ice to the knee -PT OT consulted: patient may benefit from care home facility -Hgb stable 10.8 - he is to be weight-bearing as tolerated, use walker - encouraged continue use of incentive spirometer # chronic conditions -hyperlipidemia: Atorvastatin -essential hypertension:? Holding lisinopril (patient to follow up with PCP prior to restarting) -BPH:? Flomax, dutasteride -non-insulin type 2 diabetes:? Continue Jardiance, sliding scale insulin, Accu-Cheks a.c. HS Diet:? Diabetic DVT prophylaxis:? Fondaparinux, will likely switch to aspirin on discharge Code status:?Full code Disposition:? likely discharge tomorrow to care home facility Subjective Date/time seen: 11/27/22 11:16 Interval history: Patient seen examined. He is doing well no new complaints. Right knee swelling appears to be worsened. We will continue with PT and OT, orthopedics is recommending care home. will look for placement and continue monitoring patient. Patient denies fever, chills, nausea vomiting or diarrhea. he does endorse right knee swelling. Review of Systems Review of Systems: 10 point ROS complete, negative other than what is specified in HPI. Exam Narrative: - GENERAL:? Pleasant elderly male no acute distress. Well-nourished. - EYES: EOMI. Anicteric. - HENT: Moist mucous membranes. - LUNGS: Clear to auscultation bilaterally, no wheezing, rhonchi, or rales. - CARDIOVASCULAR: Regular rate and rhythm. No murmur. No JVD. - ABDOMEN: Soft, non-tender and non-distended. No palpable masses. - EXTREMITIES:? Increased swelling right knee without erythema or fluctuance - NEUROLOGIC: No focal neurological deficits. CN II-XII grossly intact. - PSYCHIATRIC: Awake, Alert and oriented x 3. Appropriate mood and affect. - SKIN: No rashes or lesions. Warm. - LYMPH: No cervical lymphadenopathy. Objective Data Vital Signs Vital Signs: Vital Signs - 24 hr 11/26/22 14:00 11/26/22 21:15 11/27/22 05:33 Temperature 37.1 C 36.3 C L 36.6 C Pulse Rate 72 72 71 Respiratory Rate 16 18 16 Blood Pressure 148/62 H 148/68 H 148/68 H Pulse Oximetry 96 97 99 Oxygen Delivery 11/27/22 09:12 Temperature Pulse Rate 71 Respiratory Rate 16 Blood Pressure Pulse Oximetry 99 Oxygen Delivery Room Air Intake/Output Intake/Output: Intake & Output 11/24/22 11/25/22 11/26/22 11/27/22 23:59 23:59 23:59 23:59 Intake Total 1290 1340 2695 660 Output Total 1750 2050 1600 1000 Balance -460 -710 1095 -340 Meds/Results Medications: Active Medications Generic Name Dose Route Start Last Admin Trade Name Freq PRN Reason Stop Dose Admin Acetaminophen 650 mg 11/22/22 18:33 11/24/22 15:57 Acetaminophen 325 Mg Tablet PO 650 mg Q4H PRN Administration Mild Pain (1-3) or Fever Hydrocodone Bitart/Acetaminophen 1 tab 11/22/22 20:51 11/27/22 09:55 Hydrocodone/Acetaminophen (*Crx) 5-325 Mg Tablet PO 1 tab Q6H PRN Administration Pain Rated 4-6 Atorvastatin Calcium 40 mg 11/22/22 21:00 11/26/22 21:19 Atorvastatin 40 Mg Tablet PO 40 mg QHS MONIQUE Administration Bisacodyl 10 mg 11/24/22 14:46 Bisacodyl 10 Mg Suppository RECTAL DAILY PRN Constipation Dextrose 12.5 gm 11/22/22 20:51 Dextrose 50% 25 Gm/50 Ml Syringe IV PUSH PRN PRN
[2022-11-27 12:32] LABS: Glucose Point of Care 207 mg/dl (65-105)
[2022-11-27] MEDS: INSULIN ASPART (*BKC) 100 UNITS/ML SUB-Q (12:45)
[2022-11-27 14:00] VITALS: BP 138/65; PULSE 69; RESP 16; TEMP 36.5; O2SAT 98
[2022-11-27 17:27] LABS: Glucose Point of Care 197 mg/dl (65-105)
[2022-11-27 20:28] VITALS: BP 149/64; PULSE 66; RESP 18; TEMP 36.8; O2SAT 99
[2022-11-27] MEDS: TAMSULOSIN HCL 0.4 MG CAPSULE PO (20:49)
[2022-11-27] MEDS: EMPAGLIFLOZIN 25 MG TABLET PO (20:49)
[2022-11-27] MEDS: DUTASTERIDE 0.5 MG CAPSULE PO (20:49)
[2022-11-27] MEDS: ATORVASTATIN 40 MG TABLET PO (20:49)
[2022-11-27 20:51] LABS: Glucose Point of Care 205 mg/dl (65-105)
[2022-11-28 06:00] VITALS: BP 142/71; PULSE 66; RESP 20; TEMP 36.6; O2SAT 99
[2022-11-28 06:41] LABS: Hematocrit 34.2 % (42.0-52.0); Hemoglobin 11.2 g/dL (14.0-18.0); Mean Corpuscular HGB Conc 32.7 g/dl (32-36); Mean Corpuscular Hemoglobin 31.3 pg (26-34); Mean Corpuscular Volume 95.5 fl (80-100); Mean Platelet Volume 9.1 fl (7.4-10.4); Platelet Count Result 290 k/mm3 (150-375); Red Blood Count 3.58 M/mm3 (4.6-6.20); Red Cell Distribution Width 12.5 % (11.5-14.5); White Blood Count 8.5 K/mm3 (4.5-10.0)
[2022-11-28 06:45] LABS: Anion Gap 7 mmol/L (8-16); Blood Urea Nitrogen 19 mg/dL (9-20); Calcium 8.2 mg/dL (8.4-10.2); Carbon Dioxide 28 mmol/L (22-30); Chloride 103 mmol/L (98-107); Estimated CRCL calculation 92 ml/min; Estimated Glomerular Filt Rate > 60; Glucose 145 mg/dL (65-110); Potassium 3.9 mmol/L (3.4-5.0); Sodium 138 mmol/L (137-145)
[2022-11-28 08:00] VITALS: O2SAT 99
[2022-11-28 08:08] LABS: Glucose Point of Care 122 mg/dl (65-105)
[2022-11-28] MEDS: HYDROcodone/acetaminophen (*CRX) 5-325 MG TABLET 1 TAB PO ×3 (09:05→20:20)
[2022-11-28] MEDS: FONDAPARINUX SODIUM 2.5 MG/0.5 ML SYRINGE SUB-Q (09:06)
[2022-11-28] MEDS: SENNA/DOCUSATE SODIUM TABLET 2 TAB PO ×2 (09:06→17:32)
--- NOTE | 2022-11-28 11:09 | PM.IMPN ---
Progress Note: A&P Assessment and Plan (1) Closed intertrochanteric fracture of right femur: Qualifiers: Encounter type: subsequent encounter Fracture alignment: displaced Fracture healing: with routine healing Qualified Code(s): S72.141D - Displaced intertrochanteric fracture of right femur, subsequent encounter for closed fracture with routine healing Code(s): S72.141A - Displaced intertrochanteric fracture of right femur, initial encounter for closed fracture Status: Acute Plan # closed intertrochanteric fracture right hip -postop day 4 right hip IM nail - worsening right knee swelling,? recommendation for ice to the knee - PT OT consulted - Hgb stable 11.2 - he is to be weight-bearing as tolerated, use walker - encouraged continue use of incentive spirometer # chronic conditions -hyperlipidemia: Atorvastatin -essential hypertension:? Holding lisinopril (patient to follow up with PCP prior to restarting) -BPH:? Flomax, dutasteride -non-insulin type 2 diabetes:? Continue Jardiance, sliding scale insulin, Accu-Cheks a.c. HS Diet:? Diabetic DVT prophylaxis:? Fondaparinux,? will likely switch to aspirin on discharge Code status:?Full code Disposition: Medically stable for discharge, awaiting placement for acute rehab and PT evaluation Subjective Date/time seen: 11/28/22 11:09 Interval history: Patient seen examined. He is working well physical therapy. Anticipate discharge to acute rehab. Patient's labs and vitals stable. Hemoglobin 11.2. Patient denies fever, chills, nausea vomiting or diarrhea. Review of Systems Review of Systems: 10 point ROS complete, negative other than what is specified in HPI. Exam Narrative: - GENERAL:? Pleasant elderly male no acute distress. Well-nourished. - EYES: EOMI. Anicteric. - HENT: Moist mucous membranes. - LUNGS: Clear to auscultation bilaterally, no wheezing, rhonchi, or rales. - CARDIOVASCULAR: Regular rate and rhythm. No murmur. No JVD. - ABDOMEN: Soft, non-tender and non-distended. No palpable masses. - EXTREMITIES:? Some increased swelling right lower extremity without erythema - NEUROLOGIC: No focal neurological deficits. CN II-XII grossly intact. - PSYCHIATRIC: Awake, Alert and oriented x 3. Appropriate mood and affect. - SKIN: No rashes or lesions. Warm. Objective Data Vital Signs Vital Signs: Vital Signs - 24 hr 11/27/22 14:00 11/27/22 20:28 11/27/22 20:00 Temperature 36.5 C 36.8 C Pulse Rate 69 66 Respiratory Rate 16 18 Blood Pressure 138/65 149/64 H Pulse Oximetry 98 99 Oxygen Delivery Room Air 11/28/22 06:00 11/28/22 08:00 Temperature 36.6 C Pulse Rate 66 Respiratory Rate 20 Blood Pressure 142/71 H Pulse Oximetry 99 99 Oxygen Delivery Room Air Intake/Output Intake/Output: Intake & Output 11/25/22 11/26/22 11/27/22 11/28/22 23:59 23:59 23:59 23:59 Intake Total 1340 2695 3140 780 Output Total 2050 1600 2800 1300 Balance -710 1095 340 -520 Meds/Results Medications: Active Medications Generic Name Dose Route Start Last Admin Trade Name Freq PRN Reason Stop Dose Admin Acetaminophen 650 mg 11/22/22 18:33 11/24/22 15:57 Acetaminophen 325 Mg Tablet PO 650 mg Q4H PRN Administration Mild Pain (1-3) or Fever Hydrocodone Bitart/Acetaminophen 1 tab 11/22/22 20:51 11/28/22 09:05 Hydrocodone/Acetaminophen (*Crx) 5-325 Mg Tablet PO 1 tab Q6H PRN Administration Pain Rated 4-6 Atorvastatin Calcium 40 mg 11/22/22 21:00 11/27/22 20:49 Atorvastatin 40 Mg Tablet PO 40 mg QHS MONIQUE Administration Bisacodyl 10 mg 11/24/22 14:46 Bisacodyl 10 Mg Suppository RECTAL DAILY PRN Constipation Dextrose 12.5 gm 11/22/22 20:51 Dextrose 50% 25 Gm/50 Ml Syringe IV PUSH PRN PRN Hypoglycemia Protocol Diazepam 5 mg 11/24/22 14:46 Diazepam (*Crx) 5 Mg Tablet PO Q8H PRN Muscle Spasm Diphenhydramine HCl 25 mg 11/23/22 1
[2022-11-28] MEDS: ACETAMINOPHEN 325 MG TABLET 650 MG PO (11:21)
--- NOTE | 2022-11-28 12:03 | PM.PNORT ---
Progress Note: A&P Assessment and Plan (1) Closed intertrochanteric fracture of right femur: Qualifiers: Encounter type: subsequent encounter Fracture alignment: displaced Fracture healing: with routine healing Qualified Code(s): S72.141D - Displaced intertrochanteric fracture of right femur, subsequent encounter for closed fracture with routine healing Code(s): S72.141A - Displaced intertrochanteric fracture of right femur, initial encounter for closed fracture Status: Acute Assessment and Plan: POD #4: Right hip intramedullary hip screw BP improving. Antihypertensive stopped. Bowel movement yesterday and today. Continue PT/OT. WBAT. Walker. HIGH FALL RISK. Continue pain control. Ice knee. Protect skin. DVT prophylaxis with Arixtra. Plan to switch to aspirin at discharge. Complaints of RLE swelling/pain today. Doppler ordered. SCDs. Incentive Spirometry Use reviewed. Monitor Dressing. Change prior to discharge. Dispo: [facility] tomorrow. Subjective Subjective Date/Time Seen: 11/28/22 12:03 Principal diagnosis: Right proximal femur fracture Interval history: Patient in bed. Complaints of pain and RLE swelling today. Does not feel ready to be discharged to [facility]. Review of Systems Review of Systems: All systems reviewed & are unremarkable except as noted in HPI and below Constitutional: Constitutional: Denies chills, Denies fever(s), Denies headache(s), Denies lethargy and Reports weakness ENT: Denies headache(s) Cardiovascular: Cardiovascular: Denies chest pain, Denies diaphoresis, Denies lightheadedness, Denies palpitations, Denies dyspnea and Denies dyspnea on exertion Respiratory: Respiratory: Denies cough, Denies dyspnea and Denies dyspnea on exertion Gastrointestinal: Gastrointestinal: Denies constipation, Denies diarrhea, Denies nausea and Denies vomiting Genitourinary: Genitourinary: Denies dysuria, Reports urinary frequency and Denies urinary hesitancy Musculoskeletal: Musculoskeletal: Reports joint swelling (Right Hip ) and Reports limited range of motion (Right Hip due to recent surgery ) Neurologic: Denies headache(s) and Reports weakness Endocrine: Endocrine: Denies palpitations Exam Const: General: comfortable and no acute distress; No confusion Orientation/consciousness: patient oriented x3 and No confusion HENMT: Head: normal to inspection, normocephalic and atraumatic Neck: Neck: supple and nontender Skin: General skin exam: normal color and no rashes or lesions noted Other: Incision right hip c/d/i. Surrounding tissue without redness/warmth. Mild swelling consistent with recent surgery. No drainage. Neuro: General: patient oriented x3 and No confusion Cognition (Neuro): normal cognition Speech: normal speech Extrem: General: capillary refill normal Right upper extremity: normal to inspection Left upper extremity: normal to inspection Right lower extremity: normal to inspection, normal capillary refill, hip/thigh Details: tenderness Location: of the hip (Thigh soft ) Location: laterally and anteriorly, swelling Location: at the hip, abnormal ROM (limited consistent with recent surgery ) Details: pain with active ROM during and pain with passive ROM during and other (Incision c/d/i. ); no deformity and no unusual warmth, knee Details: normal to inspection; no tenderness and no swelling, lower leg (Negative Herve's Sign ) Details: normal to inspection and no edema; no tenderness, ankle (+ankle dorsiflexion/plantarflexion) Details: normal to inspection and no edema; no tenderness, no swelling and no ecchymosis and foot Details: normal capillary refill, toes with normal ROM, vascular exam Details: dorsalis pedis pulse present and motor-sensory exam Details: light-touch normal Location: in all toes; no tenderness Left lower extremity: normal to inspection, hip/thigh Details: no tenderness and no swelling, lower leg, ankle (no calf tenderness) Details: normal ROM;
[2022-11-28 12:14] LABS: Glucose Point of Care 160 mg/dl (65-105)
[2022-11-28 14:00] VITALS: BP 154/80; PULSE 71; RESP 18; TEMP 36.1; O2SAT 99
[2022-11-28 17:21] LABS: Glucose Point of Care 166 mg/dl (65-105)
[2022-11-28] MEDS: EMPAGLIFLOZIN 25 MG TABLET PO (20:20)
[2022-11-28] MEDS: ATORVASTATIN 40 MG TABLET PO (20:20)
[2022-11-28] MEDS: TAMSULOSIN HCL 0.4 MG CAPSULE PO (20:20)
[2022-11-28] MEDS: DUTASTERIDE 0.5 MG CAPSULE PO (20:20)
[2022-11-28 20:32] LABS: Glucose Point of Care 190 mg/dl (65-105)
[2022-11-28 21:06] VITALS: BP 137/79; PULSE 62; RESP 20; TEMP 36.8; O2SAT 96
[2022-11-29 06:00] VITALS: BP 124/61; PULSE 64; RESP 20; TEMP 36.8; O2SAT 99
[2022-11-29 08:30] LABS: Glucose Point of Care 195 mg/dl (65-105)
[2022-11-29] MEDS: polyethylene glycoL 3350 17 GM POWD.PACK PO (08:49)
[2022-11-29] MEDS: SENNA/DOCUSATE SODIUM TABLET 2 TAB PO (08:50)
[2022-11-29] MEDS: FONDAPARINUX SODIUM 2.5 MG/0.5 ML SYRINGE SUB-Q (08:50)
--- NOTE | 2022-11-29 08:53 | PM.PNORT ---
Progress Note: A&P Assessment and Plan (1) Closed intertrochanteric fracture of right femur: Qualifiers: Encounter type: subsequent encounter Fracture alignment: displaced Fracture healing: with routine healing Qualified Code(s): S72.141D - Displaced intertrochanteric fracture of right femur, subsequent encounter for closed fracture with routine healing Code(s): S72.141A - Displaced intertrochanteric fracture of right femur, initial encounter for closed fracture Status: Acute Assessment and Plan: POD #5: Right hip intramedullary hip screw BP improving. Antihypertensive stopped. Defer outpatient medication resuming to medicine team. Bowel movement yesterday and today. Continue PT/OT. WBAT. Walker. HIGH FALL RISK. Continue pain control. Ice knee. Protect skin. Doppler of the RLE negative. DVT prophylaxis with Arixtra. Plan to switch to aspirin at discharge. SCDs. Incentive Spirometry Use reviewed. Monitor Dressing. Change prior to discharge. Dispo: [facility] today if cleared by medicine team Subjective Subjective Date/Time Seen: 11/29/22 08:53 Post Op day: 5 Principal diagnosis: Right proximal femur fracture Interval history: POD #5: Right Hip Intramedullary Hip Screw Patient in bed. Reports improvement in RLE swelling/pain. Review of Systems Review of Systems: All systems reviewed & are unremarkable except as noted in HPI and below Constitutional: Constitutional: Denies chills, Denies fever(s), Denies headache(s), Denies lethargy and Reports weakness ENT: Denies headache(s) Cardiovascular: Cardiovascular: Denies chest pain, Denies diaphoresis, Denies lightheadedness, Denies palpitations, Denies dyspnea and Denies dyspnea on exertion Respiratory: Respiratory: Denies cough, Denies dyspnea and Denies dyspnea on exertion Gastrointestinal: Gastrointestinal: Denies constipation, Denies diarrhea, Denies nausea and Denies vomiting Genitourinary: Genitourinary: Denies dysuria, Reports urinary frequency and Denies urinary hesitancy Musculoskeletal: Musculoskeletal: Reports joint swelling (Right Hip ) and Reports limited range of motion (Right Hip due to recent surgery ) Neurologic: Denies headache(s) and Reports weakness Endocrine: Endocrine: Denies palpitations Exam Const: General: comfortable and no acute distress; No confusion Orientation/consciousness: patient oriented x3 and No confusion HENMT: Head: normal to inspection, normocephalic and atraumatic Neck: Neck: supple and nontender Skin: General skin exam: normal color and no rashes or lesions noted Other: Incision right hip c/d/i. Surrounding tissue without redness/warmth. Mild swelling consistent with recent surgery. No drainage. Neuro: General: patient oriented x3 and No confusion Cognition (Neuro): normal cognition Speech: normal speech Extrem: General: capillary refill normal Right upper extremity: normal to inspection Left upper extremity: normal to inspection Right lower extremity: normal to inspection, normal capillary refill, hip/thigh Details: tenderness Location: of the hip (Thigh soft ) Location: laterally and anteriorly, swelling Location: at the hip, abnormal ROM (limited consistent with recent surgery ) Details: pain with active ROM during and pain with passive ROM during and other (Incision c/d/i. ); no deformity and no unusual warmth, knee Details: normal to inspection; no tenderness and no swelling, lower leg (Negative Herve's Sign ) Details: normal to inspection and no edema; no tenderness, ankle (+ankle dorsiflexion/plantarflexion) Details: normal to inspection and no edema; no tenderness, no swelling and no ecchymosis and foot Details: normal capillary refill, toes with normal ROM, vascular exam Details: dorsalis pedis pulse present and motor-sensory exam Details: light-touch normal Location: in all toes; no tenderness Left lower extremity: normal to inspection, hip/thigh Details: no tenderness and no s
--- NOTE | 2022-11-29 10:47 | PCNWS ---
Weekly nutritional screen. Patient is tolerating current diet with adequate intake. No weight loss reported. No nutritional needs at this time.
[2022-11-29] MEDS: HYDROcodone/acetaminophen (*CRX) 5-325 MG TABLET 1 TAB PO (11:26)
--- NOTE | 2022-11-29 11:32 | PM.DS ---
DS: Admitting Diagnosis Discharge Date 11/29/22 Admitting Diagnosis Right Intertrochanteric Fracture DS: Discharge Diagnosis Discharge Diagnosis (1) Closed intertrochanteric fracture of right femur: Qualifiers: Encounter type: subsequent encounter Fracture alignment: displaced Fracture healing: with routine healing Qualified Code(s): S72.141D - Displaced intertrochanteric fracture of right femur, subsequent encounter for closed fracture with routine healing Code(s): S72.141A - Displaced intertrochanteric fracture of right femur, initial encounter for closed fracture Status: Acute (2) Constipation: Code(s): K59.00 - Constipation, unspecified Status: Acute (3) Benign prostatic hyperplasia: Code(s): N40.0 - Benign prostatic hyperplasia without lower urinary tract symptoms Status: Acute (4) Type 2 diabetes mellitus: Code(s): E11.9 - Type 2 diabetes mellitus without complications Status: Acute DS: Summary Hospital Course Reason for hospitalization: Right Intertrochanteric Femur Fracture Hospital Course: 82-year-old male with hypertension, hyperlipidemia, type 2 diabetes mellitus, and benign prostatic hyperplasia presented to the emergency department via EMS from home for evaluation of right hip pain after fall. Radiographs in the ED showed immediately angulated inter trochanteric right femoral fracture and he was admitted for pain control and surgical correction.Orthopedics was consulted, s/p Open reduction and internal fixation. Post op stay was uneventful. Discharged to acute inpatient rehab in stable condition. Status at Discharge Overall status at discharge: patient is progressing back to baseline Time Spent with Patient Time attestation: Total time spent providing and/or coordinating discharge services: Time spent: Greater than 30 minutes Exam Narrative: - GENERAL:? Pleasant elderly male no acute distress. Well-nourished. - EYES: EOMI. Anicteric. - HENT: Moist mucous membranes. - LUNGS: Clear to auscultation bilaterally, no wheezing, rhonchi, or rales. - CARDIOVASCULAR: Regular rate and rhythm. No murmur. No JVD. - ABDOMEN: Soft, non-tender and non-distended. No palpable masses. - EXTREMITIES:? Some increased swelling right lower extremity without erythema - NEUROLOGIC: No focal neurological deficits. CN II-XII grossly intact. - PSYCHIATRIC: Awake, Alert and oriented x 3. Appropriate mood and affect. - SKIN: No rashes or lesions. Warm. DS: Data Data Completed and Pending Labs on day of discharge: Labs from last 24 hours 11/29/22 11/28/22 11/28/22 08:20 20:16 17:03 POC Capillary Glucose 195 H 190 H 166 H 11/28/22 12:03 POC Capillary Glucose 160 H Discharge Plan Discharge Attending physician on discharge: Maria Alejandra Esquivel Consulting providers: Solo Quick; Papi Cameron; Charlene La; Garcia Simon; Jann Scott; Madi Archer; Skylar Mccormick; Juan Lombardi V. Discharging Clinician: Maria Alejandra Esquivel Anticipated Discharge Date/Time: 11/29/22 11:30 Patient Disposition: Inpatient Rehab Facility Activity: may shower, no driving and follow weight bearing status Diet: as tolerated Wound Care Instructions: follow printed instructions Discharge Instructions: Postoperative Hip Fracture Instructions Dr. Solo Quick [phone] Dressing to be changed daily with an island dressing beginning on post op day #2. May stop dressing changes at post op day #14. No sutures/armando will need to be removed. Can allow Dermabond to fall off naturally. Weight bearing: Weight bearing as tolerated. You may shower with your dressing but do not submerge in a bath tub. Do not drive or operate machinery until you are released by your surgeon. Do not walk without a walker for any reason until you are released by your surgeon. DVT prophylaxis x28 days post op. Continue to apply ice to the hip intermittently
[2022-11-29 12:17] LABS: Glucose Point of Care 242 mg/dl (65-105)
[2022-11-29] MEDS: INSULIN ASPART (*BKC) 100 UNITS/ML SUB-Q (12:43)
[2022-11-29 14:00] VITALS: BP 101/74; PULSE 76; RESP 18; TEMP 36.6; O2SAT 100
== END 2022-11-29 16:00 | DRG 482 ==
LOC: ANHED 18:43 → ANH3MEDSUR 19:29 → ANH3MED 20:56
PROVIDERS: Internal Medicine; Orthopaedic Surgery; Physician Assistant; Student in an Organized Health Care Education/Training Program; Admitting Provider Internal Medicine; Emergency Provider Family Medicine; PCP Family Medicine Sports Medicine; Visit Provider Internal Medicine
PROC: 0QS636Z Reposition Right Upper Femur with Intramedullary Internal Fixation Device, Percutaneous Approach (ICD-10-PCS; CPT 27245; principal; 2022-11-24 12:00)
DX: S72.141A Displaced intertrochanteric fracture of right femur, initial encounter for closed fracture (principal); W18.39XA Other fall on same level, initial encounter; K59.00 Constipation, unspecified; N40.0 Benign prostatic hyperplasia without lower urinary tract symptoms; E11.9 Type 2 diabetes mellitus without complications; E78.5 Hyperlipidemia, unspecified; I10 Essential (primary) hypertension; M19.90 Unspecified osteoarthritis, unspecified site; Z96.652 Presence of left artificial knee joint
CPT/HCPCS: 36415; 71045; 73502; 80048; 80053; 82948; 83036; 85025; 85027; 85610; 93005; 93971; 96374; 96375; 97110; 97116; 97161; 97165; 97530; 97535; 99199; 99285; A9270; C1713; J0690; J1170; J1652; J1815; J1885; J2270; J2370; J2405; J2704; J3010; J3480; J7030; J7120